=== PATIENT | female | born 1985 | race Caucasian/White ===

== ENCOUNTER 2023-01-15 13:53 | Outpatient (OUT) | payer MEDICAID, SELFPAY ==
[2023-01-15 14:22] LABS: Basophils Percent Auto 0.8 % (0.2-2.0); Eosinophils Absolute Auto 0.1 10^3/uL (0.0-0.7); Eosinophils Percent Auto 1.9 % (0.9-7.0); Hematocrit 35.8 % (36.0-48.0); Hemoglobin 12.1 g/dL (12.0-16.0); Immature Granulocytes Abs Auto 0.01 10^3/uL (0.00-0.03); Immature Granulocytes Pct Auto 0.2 % (0.0-0.5); Lymphocytes Absolute Auto 2.4 10^3/uL (1.2-3.8); Lymphocytes Percent Auto 45.3 % (20.5-60.0); Mean Corpuscular HGB Conc 33.8 g/dL (29.9-35.2); Mean Corpuscular Hemoglobin 29.7 pg (26.7-34.0); Mean Corpuscular Volume 87.7 fL (81.0-99.0); Mean Platelet Volume 7.8 fL (9.5-13.5); Monocytes Absolute Auto 0.4 10^3/uL (0.3-0.8); Monocytes Percent Auto 6.8 % (1.7-12.0); Neutrophils Absolute Auto 2.4 10^3/uL (1.4-6.5); Platelet Count 275 10^3/uL (150-450); Red Blood Count 4.08 10^6/uL (4.20-5.40); Red Cell Distribution Width 12.1 % (11.0-15.0); White Blood Count 5.3 10^3/uL (4.0-11.0)
[2023-01-15 15:36] LABS: Alanine Aminotransferase 14 U/L (14-59); Albumin Globulin Ratio 1.3; Albumin Level 4.3 g/dL (3.4-5.0); Alkaline Phosphatase 75 U/L (46-116); Anion Gap 14.1; Aspartate Amino Transferase 13 U/L (15-37); BUN Creatinine Ratio 19.8; Bilirubin Total 0.4 mg/dL (0.2-1.0); Calcium 9.2 mg/dL (8.5-10.1); Carbon Dioxide 27.4 mmol/L (21.0-32.0); Chloride 100 mmol/L (98-107); Estimated GFR (African America >60 (>=60); Estimated GFR (Non-African Ame >60 (>=60); Globulin 3.4 g/dL; Glucose 78 mg/dL (74-106); Potassium 3.5 mmol/L (3.5-5.1); Sodium 138 mmol/L (136-145); Total Protein 7.7 g/dL (6.4-8.2)
[2023-01-15 15:46] LABS: Cholesterol 200 mg/dL (<=200); HDL Cholesterol 50 mg/dL (40-60); Thyroid Stimulating Hormone 2.371 uIU/mL (0.358-3.740); Triglycerides 132 mg/dL (<=150); VLDL CHOLESTEROL 26.4 mg/dL
== END 2023-01-15 13:54 ==
LOC: LAB 13:53
DX: F41.1 Generalized anxiety disorder (principal); F32.9 Major depressive disorder, single episode, unspecified
CPT/HCPCS: 36415; 80053; 80061; 82306; 84443; 85025

== ENCOUNTER 2023-01-15 14:01 | Outpatient (REF) | payer MEDICAID, SELFPAY ==
[2023-01-16 04:07] LABS: Estradiol 49.8 pg/mL (.); FSH 8.1 mIU/mL (.); Luteinizing Hormone(LH) 3.4 mIU/mL (.)
[2023-01-16 10:13] LABS: Insulin 6.2 uIU/mL (2.6-24.9)
[2023-01-18 15:10] LABS: Free Testosterone(Direct) 0.2 pg/mL (0.0-4.2); Testosterone 3 ng/dL (8-60)
== END 2023-01-15 14:02 | disposition home or self-care (01) ==
LOC: LAB 14:01
PROVIDERS: PCP Nurse Practitioner Family; Visit Provider Nurse Practitioner Family
DX: F41.1 Generalized anxiety disorder (principal); F32.9 Major depressive disorder, single episode, unspecified; R23.2 Flushing
CPT/HCPCS: 36415; 80053; 80061; 82306; 82627; 82670; 83001; 83002; 83525; 84402; 84403; 84443; 85025

== ENCOUNTER 2024-03-17 13:15 | Outpatient (OUT) | payer MEDICAID, SELFPAY ==
[2024-03-17 14:22] LABS: Alanine Aminotransferase 28 U/L (14-59); Albumin Globulin Ratio 1.3; Albumin Level 4.1 g/dL (3.4-5.0); Alkaline Phosphatase 79 U/L (46-116); Anion Gap 12.2; Aspartate Amino Transferase 19 U/L (15-37); BUN Creatinine Ratio 20.7; Bilirubin Total 0.6 mg/dL (0.2-1.0); Calcium 8.9 mg/dL (8.5-10.1); Chloride 98 mmol/L (98-107); Estimated GFR (African America >60 (>=60); Estimated GFR (Non-African Ame >60 (>=60); Globulin 3.1 g/dL; Glucose 71 mg/dL (74-106); Potassium 4.2 mmol/L (3.5-5.1); Sodium 132 mmol/L (136-145); Total Protein 7.2 g/dL (6.4-8.2)
[2024-03-18 06:09] LABS: HBsAg Screen Negative (Negative); HIV Ab/p24 Ag Screen Non Reactive (Non Reactive); Hep B Core Ab, Tot Negative (Negative)
[2024-03-18 12:10] LABS: Rapid Plasma Reagin, Quant Non Reactive titer (NonRea<1:1)
[2024-03-19 08:12] LABS: QuantiFERON-TB Gold Plus Positive (Negative)
[2024-03-20 13:08] LABS: HCV Ab Reactive (Non Reactive)
== END 2024-03-17 13:16 | disposition home or self-care (01) ==
LOC: LAB 13:18
PROVIDERS: PCP Nurse Practitioner Family
DX: Z11.3 Encounter for screening for infections with a predominantly sexual mode of transmission (principal); Z13.0 Encounter for screening for diseases of the blood and blood-forming organs and certain disorders involving the immune mechanism; Z11.4 Encounter for screening for human immunodeficiency virus [HIV]; Z11.59 Encounter for screening for other viral diseases; Z11.8 Encounter for screening for other infectious and parasitic diseases
CPT/HCPCS: 36415; 80053; 86480; 86592; 86704; 86803; 87340; 87389

== ENCOUNTER 2025-03-18 11:21 | Outpatient (OUT) | payer OTHER, SELFPAY ==
--- OUTSIDE RECORDS SUMMARY | 2025-03-18 11:31 | XMS_ITS | CCD ---
Author Organization [facility] Care Team Providers Care Ophthalmic Surgeon Name Role Phone DENIS DIEGO Unavailable Unavailable AKI HONG Unavailable Unavailable AKI HONG Unavailable Unavailable GREGORY SANDERSON Unavailable Unavailable Aki Lantigua Primary Care Provider STEVE, DR GARCIA Admitting Unavailable STEVE, DR GARCIA Attending Unavailable GIRVIN, DR PRABHAKAR Primary Care Unavailable STEVE, DR GARCIA Admitting Unavailable STEVE, DR GARCIA Attending Unavailable MISC, DR PADGETT Primary Care Unavailable STEVE, DR GARCIA Consulting Unavailable MISC, DR PADGETT Admitting Unavailable MISC, DR PADGETT Attending Unavailable MISC, DR PADGETT Primary Care Unavailable MISC, DR PADGETT Consulting Unavailable STEVE, DR GARCIA Admitting Unavailable STEVE, DR GARCIA Attending Unavailable MISC, DR PADGETT Primary Care Unavailable STEVE, DR GARCIA Consulting Unavailable KIRACLARIN R Admitting Unavailable KIRAPOLINA Whatley Attending Unavailable AMOS, DR PRABHAKAR Primary Care Unavailable POLINA MALONE Consulting Unavailable WILLIAM BENDER Attending Unavailable WILLIAM BENDER Primary Care Unavailable WILLIAM BENDER Admitting Unavailable Allergies Allergy Classification Reported Allergen(s) Allergy Type Date of Onset Reaction(s) Facility Sulfonamides (antibiotic) (1 source) Sulfonamides (Antibiotic) Drug Allergy 01-06-2014 [facility] (2 sources) Sulfonamides (Antibiotic) Drug allergy (disorder) 06-29-2013 [facility] Repository Medications Completed/Discontinued Medications Medication Drug Class(es) Dates Sig (Normalized) Sig (Original) busPIRone hydrochloride 5 mg oral tablet (1 source) take 1 tablet by mouth three times daily busPIRone 5 mg tablet Take 5 mg by mouth three times daily. 0 Active Comment on above: Take 5 mg by mouth t hree times daily. calcium carbonate-Vit D3-minerals (CALTRATE-600 PLUS VITAMIN D3) 600 mg calcium- 400 unit tab (1 source) take 1 tablet by mouth once daily calcium carbonate-Vit D3-minerals (CALTRATE-600 PLUS VITAMIN D3) 600 mg calcium- 400 unit tab Take 1 tablet by mouth once daily. 0 Active Comment on above: Take 1 tablet by jose luis th once daily. diphenhydrAMINE hydrochloride 25 mg oral tablet (1 source) Histamine-1 Receptor Antagonist take 1 tablet by mouth every six hours as needed diphenhydrAMINE (BENADRYL ALLERGY) 25 mg tablet Take 25 mg by mouth every 6 hours as needed. 0 Active Comment on above: Take 25 mg by mouth every 6 hours as needed. Fiber (1 source) FIBER 6 ORAL Vinay e by mouth. 0 Active Comment on above: Take by mouth. methamphetamine hydrochloride 5 mg oral tablet (1 source) Amphetamine Anorectic, Central Nervous System Stimulant Methamphetamine HCl 5 mg tab Take by mouth. 0 Active Comment on above: Take by mouth. VIT#42/FA CMB#6 (PRENA1 CHEW ORAL) (1 source) VIT#42/ FA CMB#6 (PRENA1 CHEW ORAL) Take by mouth. 0 Active Comment on above: Take by mouth. venlafaxine 75 mg oral tablet (1 source) Serotonin and Norepinephrine Reuptake Inhibitor take 1 tablet by mouth once venlafaxine 75 mg tablet Take 75 mg by mouth one time only. 0 Active Comment on above: Take 75 mg by mouth one time only. Problems Active Problems Problem Classification Problem Date Documented Date Episodic/Chronic Anxiety disorders (1 source) Generalized anxiety disorder; Translations: [GENERALIZED ANXIETY DISORDER] Onset: 05-26-2022 Chronic Conduction disorders (4 sources) Long QT syndrome; Translations: [LONG QT SYNDROME] Onset: 07-03-2022 Chronic Immunizations and screening for infectious disease (6 sources) Encounter for screening for infections with a predominantly sexual mode of transmission; Translations: [Encounter for screening for human immunodeficiency virus [HIV]] Onset: 05-25-2022 Episodic Other screening for suspected conditions (not mental disorders or infectious disease) (1 source) Encounter for screening for diseases of the blood and blood-forming organs and certain disorders involving the immune mechanism; Translations: [ENC SCR DZ BLD AND BFO D/O IMMUN MECH] Onset: 05-26-2022 Episodic Skin and subcutaneous tissue infections (1 source) Cutaneous abscess, unspecified; Translations: [Cutaneous abscess, unspecified] Onset: 05-17-2018 Episodic Unclassified (3 sources) CONTACT W/AND (SUSP) EXPOS COVID-19; Translations: [CONTACT W/AND (SUSP) EXPOS COVID-19] Onset: 11-11-2021 Past or Other Problems Problem Classification Problem Date Documented Da te Episodic/Chronic Other complications of (1 source) growth restriction; Translations: [Maternal care for other known or suspected poor growth, unspecified trimester, not applicable or unspecified] Onset: 06-02-2014 06-02-2014 Episodic Substance-related disorders (2 sources) Substance abuse; Translations: [Drug use complicating , unspecified trimester] Onset: 01-06-2014 01-06-2014 Episodic Unclassified (1 source) CONTACT W/AND (SUSP) EXPOS COVID-19; Translations: [CONTACT W/AND (SUSP) EXPOS COVID-19] Onset: 11-08-2021 Results Test Name Value Interpretation Reference Range Facility PAP [id number] Age Gdlnon 2023 IGP Aptima HPV ACOG Note Invalid Interpretation Code [facility] Comment on above: Result Comment: TEST S RESULT FLAG UNITS REF RANGE LAB Clinician Provided Cytology Information Source.............Cervix No. of containers..01 ThinPrep Vial Age Algo ACOG Suyapa... 30-65 01 FLAG LEGEND: L-Low Normal,H-High Normal,LL-Alert Low,HH-Alert High <-Panic Low,>-Panic High,A-Abnormal,AA-Critical Abnormal Performed at: 01 =G [facility] [address] [place] [address] Teri Blanchard MD, Performed at: =G [facility] [address] [place], [place] [id number] MD Lo Williamson Performed By: #### 1 [id number], [id number] #### [facility] [address] [place] [address] PAP [id number] 02-08-2023 Cytology report Cyto stain Doc (Cvx/Vag) Note Invalid Interpretation Code [facility] Comment on above: Result Comment: TEST S RESULT FLAG UNITS REF RANGE LAB DIAGNOSIS: 02 NEGATIVE FOR INTRAEPITHELIAL LESION OR MALIGNANCY. Specimen adequacy: 02 Satisfactory for evaluation. Endocervical and/or squamous metaplastic cells (endocervical component) are present. Performed by: Stone Wolff, Metal Precision Machine Assembler (ASCP) . 02 Note: Note 02 The Pap smear is a screening test designed to aid in the detection of premalignant and malignant conditions of the uterine cervix. It is not a diagnostic procedure and should not be used as the sole means of detecting cervical cancer. Both false-positive and false-negative reports do occur. Test Methodology: Note 02 The [employer](R) Animal Nursery Worker was unable to read this specimen. Therefore a manual review was performed. FLAG LEGEND: L-Low Normal,H-High Normal,LL-Alert Low,HH-Alert High <-Panic Low,>-Panic High,A-Abnormal,AA-Critical Abnormal Performed at: 02 [facility] [address] [place] [address] Teri Blanchard MD, Performed By: #### 1 [id number], [id number] #### [facility] [address] [place] [address] HPV 16+18+31+33+35+39+4 5+51+52+56+58+59+66 +68 DNA Probe+sig amp Ql (Cvx) Negative Invalid Interpretation Code Negative [facility] Comment on above: Result Comment: This nucleic acid amplification test detects fourteen high-risk HPV types (16,18,31,33,35,39,45,51,52,56,58,59,66,68) without differentiation. Performed By: #### 1 [id number], [id number] #### [facility] [address] [place] [address] PAP [id number] Age Gdlnon 2023 Collection Technique BRUSH-SPATULA Normal [facility] Comment on above: Performed By: #### 1 [id number], [id number] #### [facility] [address] [place] [address] Gynecological Body Site CERVIX Normal [facility] Comment on above: Performed By: #### 1 [id number], [id number] #### [facility] [address] [place] [address] Physician Orderon 02-06-2023 Physician Order [id number] Normal [facility] HEPATITIS PANEL, ACUTEon HBsAg Screen Negative Normal Negative [facility] Comment on above: Performed By: #### H EPACUT #### [facility] [address] [address] [address] Jayla Erazo HCV AB >11.0 Critically high 0.0-0.9 [facility] Comment on above: Result Comment: . Performed By: #### H EPACUT #### [facility] [address] [address] [address] Jayla Erazo HCV log10 Normal [facility] Comment on above: Performed By: #### H EPACUT #### [facility] [address] [address] [address] Jayla Erazo Hep A Ab, IgM Negative Normal Negative [facility] Comment on above: Performed By: #### H EPACUT #### [facility] [address] [address] [address] Jayla Erazo Hep B Core Ab, IgM Negative Normal Negative [facility] Comment on above: Performed By: #### H EPACUT #### [facility] [address] [address] [address] Jayla Erazo Hep C Quantitation Not detected Normal [facility] Comment on above: Performed By: #### H EPACUT #### [facility] [address] [address] [address] Jayla Erazo Interpretation Comment Normal [facility] Comment on above: Result Comment: Posi tive HCV antibody screen without the presence of HCV RNA is consistent with a resolved past infection or a false positive HCV antibody. Consider repeat testing after one month. Performed By: #### H EPACUT #### [facility] [address] [address] [address] Jayla Erazo Test Information: Comment Normal [facility] Comment on above: Result Comment: The quantitative range of this assay is 15 IU/mL to 100 million IU/mL. Performed By: #### H EPACUT #### [facility] [address] [place] [address] Dr. Jayla Erazo HIV 1 AND 2 WITH REFLEXon HIV Screen 4th Generation wRfx Non-Reactive Normal Non Reactive [facility] Comment on above: Result Comment: HIV Negative HIV-1/HIV-2 antibodies and HIV-1 p24 antigen were NOT detected. There is no laboratory evidence of HIV infection. Performed By: #### H IV12 #### [facility] [address] [place] [address] Dr. Jayla Erzao RPR QUANTon 05-27-2022 Rapid Plasma Reagin, Quant Non-Reactive Normal NonRea<1:1 [facility] Comment on above: Result Comment: Plea se Note: This test does not meet current guidelines for screening and diagnosis of syphilis. This test is intended for following treatment response in patients being treated for syphilis infection. To screen for syphilis infection, a reflex cascade that includes both RPR and a treponema-specific assay should be utilized, such as Treponema pallidum (Syphilis) Screening [place] (105236) or Rapid Plasma Reagin (RPR) Test With Reflex to Quantitative RPR and Confirmatory Treponema pallidum Antibodies (293067). Performed By: #### R PRQ #### [facility] [address] [place] [address] Dr. Jayla Erazo CBC AUTO DIFFon 05-25-2022 BASO # 0.1 103/ul Normal 0.0-0.1 [facility] Comment on above: Performed By: #### C BC #### [facility] [address] [place] [address] Dr. Jayla Erazo Basophils/100 WBC (Bld) 0.9 % Normal 0.2-2.0 [facility] Comment on above: Performed By: #### C BC #### [facility] [address] [place] [address] Dr. Jayla Erazo EO # 0.3 103/ul Normal 0.0-0.7 [facility] Comment on above: Performed By: #### C BC #### [facility] [address] [place] [address] Dr. Jayla Erazo Eosinophils/100 WBC (Bld) 5.1 % Normal 0.9-7.0 [facility] Comment on above: Performed By: #### C BC #### [facility] [address] [place] [address] Dr. Jayla Erazo Erythrocyte distribution width (RBC) [Ratio] 12.4 % Normal 11.0-15.0 [facility] Comment on above: Performed By: #### C BC #### [facility] [address] [place] [address] Dr. Jayla Erazo Hematocrit (Bld) [Volume fraction] 38.8 % Normal 36.0-48.0 [facility] Comment on above: Performed By: #### C BC #### [facility] [address] [place] [address] Dr. Jayla Erazo Hemoglobin (Bld) [Mass/Vol] 13.0 g/dL Normal 12.0-16.0 [facility] Comment on above: Performed By: #### C BC #### [facility] [address] [place] [address] Dr. Jayla Erazo IG # 0.02 10e3/ul Normal 0.00-0.03 [facility] Comment on above: Performed By: #### C BC #### [facility] [address] [place] [address] Dr. Jayla Erazo IG % 0.3 % Normal 0.0-0.5 [facility] Comment on above: Performed By: #### C BC #### [facility] [address] [place] [address] Dr. Jayla Erazo LYMPH # 2.2 103/ul Normal 1.2-3.8 [facility] Comment on above: Performed By: #### C BC #### [facility] [address] [place] [address] Dr. Jayla Erazo Lymphocytes/100 WBC (Bld) 32.8 % Normal 20.5-60.0 [facility] Comment on above: Performed By: #### C BC #### [facility] [address] [place] [address] Dr. Jayla Erazo MANUAL DIFF REQ NO Normal [facility] Comment on above: Performed By: #### C BC #### [facility] [address] [place] [address] Dr. Jayla Erazo MCH (RBC) [Entitic mass] 29.2 pg Normal 26.7-34.0 [facility] Comment on above: Performed By: #### C BC #### [facility] [address] [address] [address] Jayla Erazo MCHC (RBC) [Mass/Vol] 33.5 g/dL Normal 29.9-35.2 [facility] Comment on above: Performed By: #### C BC #### [facility] [address] [address] [address] Jayla Erazo MCV (RBC) [Entitic vol] 87.2 fL Normal 81.0-99.0 [facility] Comment on above: Performed By: #### C BC #### [facility] [address] [address] [address] Jayla Erazo MONO # 0.4 103/ul Normal 0.3-0.8 [facility] Comment on above: Performed By: #### C BC #### [facility] [address] [place] [address] Dr. Jayla Erazo Monocytes/100 WBC (Bld) 6.2 % Normal 1.7-12.0 [facility] Comment on above: Performed By: #### C BC #### [facility] [address] [place] [address] Dr. Jayla Erazo NEUT # 3.6 103/ul Normal 1.4-6.5 [facility] Comment on above: Performed By: #### C BC #### [facility] [address] [address] [address] Jayla Erazo Neutrophils/100 WBC (Bld) 54.7 % Normal 43.0-75.0 [facility] Comment on above: Performed By: #### C BC #### [facility] [address] [address] [address] Jayla Erazo Platelet mean volume (Bld) [Entitic vol] 7.9 fL Critically low 9.5-13.5 [facility] Comment on above: Performed By: #### C BC #### [facility] [address] [address] [address] Jayla Erazo PLT 251 103/ul Normal 150-450 [facility] Comment on above: Performed By: #### C BC #### [facility] [address] [address] [address] Jayla Erazo RBC 4.45 106/ul Normal 4.20-5.40 [facility] Comment on above: Performed By: #### C BC #### [facility] [address] [address] [address] Jayla Erazo WBC 6.6 103/ul Normal 4.0-11.0 [facility] Comment on above: Performed By: #### C BC #### [facility] [address] [address] [address] Jayla Erazo PROF 14(COMP METB)on 022 Albumin [Mass/Vol] 4.5 g/dL Normal 3.4-5.0 [facility] Comment on above: Performed By: #### C MP, TSH #### [facility] [address] [place] [address] Dr. Jayla Erazo Albumin/Globulin [Mass ratio] 1.2 {ratio} Normal [facility] Comment on above: Performed By: #### C MP, TSH #### [facility] [address] [place] [address] Dr. Jayla Erazo ALP [Catalytic activity/Vol] 87 U/L Normal 46-116 [facility] Comment on above: Performed By: #### C MP, TSH #### [facility] [address] [address] [address] Jayla Erazo ALT [Catalytic activity/Vol] 21 U/L Normal 14-59 [facility] Comment on above: Performed By: #### C MP, TSH #### [facility] [address] [place] [address] Dr. Jayla Erazo Anion gap [Moles/Vol] 9.4 mmol/L Normal [facility] Comment on above: Performed By: #### C MP, TSH #### [facility] [address] [address] [address] Jayla Erazo AST [Catalytic activity/Vol] 14 U/L Critically low 15-37 [facility] Comment on above: Performed By: #### C MP, TSH #### [facility] [address] [address] [address] Jayla Erazo Bilirubin [Mass/Vol] 0.5 mg/dL Normal 0.2-1.0 [facility] Comment on above: Performed By: #### C MP, TSH #### [facility] [address] [place] [address] Dr. Jayla Erazo Calcium [Mass/Vol] 9.5 mg/dL Normal 8.5-10.1 [facility] Comment on above: Performed By: #### C MP, TSH #### [facility] [address] [place] [address] Dr. Jayla Erazo Chloride [Moles/Vol] 101 mmol/L Normal 98-107 [facility] Comment on above: Performed By: #### C MP, TSH #### [facility] [address] [place] [address] Dr. Jayla Erazo CO2 [Moles/Vol] 34.2 mmol/L Critically high 21.0-32.0 [facility] Comment on above: Performed By: #### C MP, TSH #### [facility] [address] [place] [address] Dr. Jayla Erazo Creatinine [Mass/Vol] 0.90 mg/dL Normal 0.55-1.02 [facility] Comment on above: Performed By: #### C MP, TSH #### [facility] [address] [place] [address] Dr. Jayla Erazo EGFR-AF RUSSIAN >60 Normal >=60 [facility] Comment on above: Performed By: #### C MP, TSH #### [facility] [address] [place] [address] Dr. Jayla Erazo EGFR-NON AF RUSSIAN >60 Normal >=60 [facility] Comment on above: Performed By: #### C MP, TSH #### [facility] [address] [place] [address] Dr. Jayla Erazo Globulin (S) [Mass/Vol] 3.8 g/dL Normal [facility] Comment on above: Performed By: #### C MP, TSH #### [facility] [address] [address] [address] Jayla Erazo Glucose [Mass/Vol] 80 mg/dL Normal 74-106 [facility] Comment on above: Performed By: #### C MP, TSH #### [facility] [address] [address] [address] Jayla Erazo Potassium [Moles/Vol] 4.6 mmol/L Normal 3.5-5.1 [facility] Comment on above: Performed By: #### C MP, TSH #### [facility] [address] [address] [address] Jayla Erazo Protein [Mass/Vol] 8.3 g/dL Critically high 6.4-8.2 [facility] Comment on above: Performed By: #### C MP, TSH #### [facility] [address] [place] [address] Dr. Jayla Erazo Sodium [Moles/Vol] 140 mmol/L Normal 136-145 [facility] Comment on above: Performed By: #### C MP, TSH #### [facility] [address] [place] [address] Dr. Jayla Erazo Urea nitrogen [Mass/Vol] 14.0 mg/dL Normal 7.0-18.0 [facility] Comment on above: Performed By: #### C MP, TSH #### [facility] [address] [place] [address] Dr. Jayla Erazo Urea nitrogen/Creatinine [Mass ratio] 15.6 mg/mg Normal [facility] Comment on above: Performed By: #### C MP, TSH #### [facility] [address] [place] [address] Dr. Jayla Erazo TSHon 05-25-2022 TSH 1.602 uIU/mL Normal 0.358-3.740 [facility] Comment on above: Performed By: #### C MP, TSH #### [facility] [address] [place] [address] Dr. Jayla Erazo VITAMIN D 25 OHon 05-25-2022 VIT D 25-OH 17.1 ng/mL Normal [facility] Comment on above: Performed By: #### V ITAD #### [facility] [address] [address] [address] Jayla Erazo VIT D RANGES SEE BELOW Normal [facility] Comment on above: Result Comment: <20 ng/mL Vit D deficient 20 - <30 ng/mL Vit D insufficient 30 - 100 ng/mL Vit D sufficient >100 ng/mL Potential Toxicity Performed By: #### V ITAD #### [facility] [address] [address] [address] Jayla Eraz[facility] SARS-CoV-2 (COVID-19) RNA SHIRAZ+probe Ql (Unsp spec) Not detected Normal NOT DETECTED [facility] Comment on above: Result Comment: This test is not yet approved or cleared by the [place] FDA. When there are no FDA-approved or cleared tests available, and other criteria are met, FDA can make tests available under an emergency access mechanism called an Emergency Use Authorization (EUA). The EUA for this test is supported by the [employer] of Health and Human Service's (HHS's) declaration that circumstances exist to justify the emergency use of in vitro diagnostics for the detection and/or diagnosis of the virus that causes COVID-19. This EUA will remain in effect (meaning this test can be used) for the duration of the COVID-19 declaration justifying emergency of IVDs, unless it is terminated or revoked by FDA (after which the test may no longer be used). When diagnostic testing is negative, the possibility of a false negative should be considered in the context of a patient's recent exposures and the presence of clinical signs and symptoms consistent with SARS-CoV-2. Performed By: #### C VDTBH #### [facility] [address] [address] [address] Jayla Erazo Consulton 05-17-2018 HIM IP Note OR Assessment Coordinator Normal [facility] Discharge Summaryon 05-17-20 18 HIM IP Note OR Assessment Coordinator Normal [facility] ED Noteon 05-17-2018 HIM IP Note OR Assessment Coordinator Normal [facility] HIM IP Note OR Assessment Coordinator Normal [facility] HIM IP Note OR Assessment Coordinator Normal [facility] HIM IP Note OR Assessment Coordinator Normal [facility] HIM IP Note OR Assessment Coordinator Normal [facility] ED Provider Noteon 8 HIM IP Note OR Assessment Coordinator Normal [facility] History and Physicalon 05-17 HIM IP Note OR Assessment Coordinator Normal [facility] Plan of Careon 05-17-2018 HIM IP Note OR Assessment Coordinator Normal [facility] HIM IP Note OR Assessment Coordinator Normal [facility] Procedureon 05-17-2018 HIM IP Note OR Assessment Coordinator Normal [facility] Progress Noteon 05-17-2018 HIM IP Note OR Assessment Coordinator [facility] Encounters Encounter Date Encounter Type Care Provider Facility Start: 02-05-2023 End: 02-06-2023 ambulatory WILLIAM BENDER Facility:[facility] Start: 07-03-2022 End: 07-04-[address] RADHA WILSON Facility:[facility] Start: 05-25-2022 End: 05-26-[address] DOCTOR YI Facility:[facility] Start: 04-20-[address] RADHA WILSON Faci lity:[facility] Start: 11-08-2021 End: 11-08-2021 ambulatory POLINA MALONE Facility:[facility] Start: 05-17-2018 End: 05-17-2018 Patient encounter DENIS DIEGO [facility] Start: 02-10-2014 End: 02-10-2014 Telephone encounter Tre Nichols MD Work Phone: OB/Gynecology Procedures Date Procedure Procedure Detail Performing Clinician Start: 05-17-2018 DISCHARGE PATIENT BUDDY NT JOHNATHON Start: 05-17-2018 IP CONSULT TO SOCIAL WORK VINCGAGANDEEP JOHNATHON Start: 05-17-2018 DIET GENERAL VINCGAGANDEEP TO [place] Start: 05-17-2018 PATIENT STATUS (FROM ED OR OR/PROCEDURAL) VINCENT JOHNATHON Start: 05-17-2018 IP CONSULT TO TRAUMA SURGERY DONGAGANDEEP JOHNATHON Start: 05-17-2018 IP CONSULT TO OTOLARYNGOLOGY DENIS DIEGO Plan of Treatment Date Care Activity Detail Author Start: 03-30-2021 Influenza vaccination INFLUENZA (Sea son Ended) [facility] Start: 2014 HPV TESTING HPV TESTING [facility] Start: 2005 PAP TESTING PAP TESTING [facility] Start: 2003 Urine microalbumin profile DTAP,TDAP ,TD (1 - Tdap) [facility] Start: 2002 HEPATITIS C SCREENING HEPATITIS C SC REENING [facility] Start: 2002 HIV SCREENING HIV SCREENING [facility] Start: 1996 Adult depression scr eening assessment DEPRESSION SCREENING [facility] Payers Date Payer Category Payer Medicare [id number] 2013 Medicaid MEDICAID [facility] MEDICAID [id number] 2013-Present Medicaid [id number] 2013 Medicare MEDICARE MEDICAR E B [id number] 2013-Present [place] Medicare [id number] 1984 Unknown [id number] 1984 Unknown [id number] 1984 Unknown [id number] 1984 Unknown [id number] 1984 Unknown [id number] 1984 Unknown [id number] 1984 Unknown [id number] 1959 Medicaid [id number] Social History Date Type Detail Facility Start: 01-06-2014 Tobacco smoking stat us NHIS Current every day smoker [facility] Start: 01-06-2014 Tobacco use and exposure Never used [facility] Start: 01-06-2014 Alcohol intake Current drinke r of alcohol (finding) [facility] Start: 10-01-2013 [facility] Start: 1984 Sex Assigned At Not on file [facility] Note 02-10-2014 Telephone Encounter - Lucretia Osman RN - 02/10/2014 1:41 PM EDT Note Date & Type Note Facility 02-10-2014 Miscellaneous Notes Patient calling in for quad screen results today. Confirmed patient identification. Patient was informed of a negative quad screen result. Her risk of Spina Bifida is 1:1800. Her AFP in the serum sample is within normal limits. Her age related Downs Syndrome risk is 1:747, and her risk of Downs Syndrome using her age and biochemical markers is 1:1900. The patient's calculated risk of Trisomy 18 is 1:10,000. The patient understands her results and has a follow up ultrasound scheduled for 03/[address] Nichols. She has no further questions documented in this encounter [facility] Summary Purpose Family History No Family History Records FoundNo Family History Records FoundNo Family History Records Found Advance Directives No Advanced Directives Records FoundNo Advanced Directives Records FoundNo Advanced Directives Records Found Additional Source Comments INFORMATION SOURCE (unrecogn ized section and content) DATE CREATED AUTHOR 06/17/2018 [facility] DATE CREATED AUTHOR AUTHOR'S ORGANIZ ATION 07/08/2022 [facility] DATE CREATED AUTHOR AUTHOR'S ORGANIZ ATION 02/09/2023 [facility] Source Comments (unrecognize d section and content) In the event this informatio n is protected by the Federal Confidentiality of Alcohol and Drug Abuse Patient Records regulations: The Federal rules restrict any use of the information to criminally investigate or prosecute any alcohol or drug abuse patient.[facility] FOR RECORDS PERTAINING TO PATIENTS WHO ARE OR HAVE BEEN ENROLLED IN A CHEMICAL DEPENDENCY/SUBSTANCEABUSE PROGRAM, SOME INFORMATION MAY BE OMITTED. This clinical summary was aggregated from multiple sources. Caution should be exercised in using it in the provision of clinical care. This summary normalizes information from multiple sources, and as a consequence, information in this document may materially change the coding, format and clinical context of patient data. In addition, data may be omitted in some cases. CLINICAL DECISIONS SHOULD BE BASED ON THE PRIMARY CLINICAL RECORDS. [facility] [employer] [facility] provides no warranty or guarantee of the accuracy or completeness of information in this document.
[2025-03-18 14:05] LABS: Hematocrit 44.9 % (36.0-48.0); Hemoglobin 15.8 g/dL (12.0-16.0); Immature Granulocytes Abs Auto 0.02 10^3/uL (0.00-0.03); Immature Granulocytes Pct Auto 0.2 % (0.0-0.5); Lymphocytes Absolute Auto 1.8 10^3/uL (1.2-3.8); Mean Corpuscular HGB Conc 35.2 g/dL (29.9-35.2); Mean Corpuscular Hemoglobin 30.9 pg (26.7-34.0); Mean Corpuscular Volume 87.9 fL (81.0-99.0); Platelet Count 226 10^3/uL (150-450); Red Blood Count 5.11 10^6/uL (4.20-5.40); White Blood Count 8.7 10^3/uL (4.0-11.0)
[2025-03-18 15:36] LABS: Cholesterol 276 mg/dL (<=200); HDL Cholesterol 43 mg/dL (40-60); Thyroid Stimulating Hormone 1.394 uIU/mL (0.358-3.740); Triglycerides 215 mg/dL (<=150); VLDL CHOLESTEROL 43.0 mg/dL
[2025-03-20 12:08] LABS: Calcitriol(1,25 di-OH Vit D) 59.9 pg/mL (24.8-81.5)
== END 2025-03-18 11:22 | disposition home or self-care (01) ==
LOC: LAB 11:25
DX: F41.1 Generalized anxiety disorder (principal)
CPT/HCPCS: 36415; 80061; 82652; 84443; 85025

== ENCOUNTER 2025-03-18 11:28 | Outpatient (OUT) | payer OTHER, SELFPAY ==
--- OUTSIDE RECORDS SUMMARY | 2025-03-18 11:32 | XMS_ITS | Clinical Summary ---
Author Organization [facility] Address [address] [place] [address] Care Team Providers Care Caustic Room Attendant Name Role Phone Unavailable Primary Care Provider Unavailabl e Social History Tobacco Use Types Packs/Day Years Used Date Smoking Tobacco: Never Assessed Comments Unknown Sex and Gender Information Value Date Recorded Sex Assigned at Not on file Legal Sex Female 7:10 PM EDT Gender Identity Not on file Sexual Orientation Not on file Last Filed Vital Signs Vital Sign Reading Time Taken Comments Blood Pressure 106/68 08/21/2018 12:00 PM EST Pulse - - Temperature - - Respiratory Rate - - Oxygen Saturation - - Inhaled Oxygen Concentration - - Weight 50.8 kg (112 lb) 08/21/2018 12:00 PM EST Height 167.6 cm (5' 6 ) 08/21/2018 12:00 PM EST Body Mass Index 18.08 08/21/2018 12:00 PM EST Plan of Treatment Not on file
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
--- OUTSIDE RECORDS SUMMARY | 2025-03-18 11:32 | XMS_ITS | Patient Health Record ---
Author Organization [employer] [facility] Address [address] [place] [address] Care Team Providers Care Concrete Layer Name Role Phone Gladys Nolasco Primary Care Provider Isamar Chen Unavailable Allergies Allergen (clinical drug ingredient) Drug/Non Drug Allergy documented on EMR Reaction Allergy Type Onset Date Status Substance with sulfonamide structure and antibacterial mechanism of action (substance) Sulfa Antibiotics Unknown Drug Allergy Active Reason For Referral No Information Medications Medication SIG (Take, Route, Frequency, Duration) Notes Start Date End Date Status cloNIDine HCl 0.2 MG 1 tablet Orally Onc e a day at bedtime as needed for sleep; Duration: 30 days Active Nurtec 75 MG 1 tablet on the tong ue and allow to dissolve Orally Active Montelukast Sodium 10 MG TAKE 1 TABLET B Y MOUTH EVERY DAY FOR 30 DAYS; Duration: 30 Active ARIPiprazole 20 MG 1 tablet Orally Once a day; Duration: 30 days Active buPROPion HCl ER (XL) 150 MG 1 tablet in the morning Orally Once a day; Duration: 30 days Not-Takin g Rexulti 3 MG TAKE 1 TABLET BY WALDO EVERY DAY Orally Once a day; Duration: 30 days Active Cetirizine HCl 10 MG TAKE 1 TABLET BY MO H EVERY DAY; Duration: 30 Active buPROPion HCl ER (XL) 300 MG 1 tablet in the morning Orally Once a day; Duration: 30 days Active Pataday 0.2 % 1 drop into affected eye Ophthalmic Once a day; Duration: 30 days 01/08/2023 Active Ibuprofen 800 MG 1 tablet with food o r milk as needed Orally Three times a day 07/20/2022 Active Amoxicillin Not-Taki ng Amitriptyline HCl 25 MG 1 tablet at bedt korina Orally Once a day; Duration: 30 day(s) 06/05/2022 Not-Taking Amoxicillin-Pot Clavulanate 875-125 MG 1 tablet Orally every 12 hrs; Duration: 10 day(s) Not-Taking QUEtiapine Fumarate 50 MG TAKE 1 TABLET BY MOUTH EVERY DAY AT BEDTIME FOR 30 DAYS as needed for sleep Once a day as needed for sleep; Duration: 30 days Active lamoTRIgine 200 MG TAKE 1 TABLET BY WALDO TH EVERY DAY FOR 30 DAYS Orally Once a day; Duration: 30 days Not-Taking Propranolol HCl 20 MG 1 tablet on an emp ty stomach Orally daily; Duration: 30 days 01/01/2025 Active Social History Tobacco Use: Social History Observation Description Date Details (start date - stop date) Current Smoker NA - NA Alcohol Screening: Question Answer Notes Did you have a drink contain ing alcohol in the past year? Yes How often did you have a dri nk containing alcohol in the past year? Monthly or less (1 point) How many drinks did you have on a typical day when you were drinking in the past year? 1 or 2 (0 points) How often did you have six o r more drinks on one occasion in the past year? Never (0 points) Points 1 Interpretation Negative Depression Screening (PHQ-9): Question Answer Notes Little interest or pleasure in doing things Sammie ral days Feeling down, depressed, or hopeless More than h romulo the days Trouble falling or staying asleep, or sleeping t oo much Not at all Feeling tired or having little energy Nearly rufino ry day Poor appetite or overeating Several days Feeling bad about yourself-o r that you are a failure or have let yourself or your family down Nearly every day Trouble concentrating on thi ngs, such as reading the newspaper or watching television Several days Moving or speaking so slowly that other people could have noticed. Or the opposite being so fidgety or restless that you have been moving around a lot more than usual Not at all Thoughts that you would be b thierry off , or of hurting yourself in some way Not at all Total Score 11 Intepretation Moderate Depression Tobacco Control (Standard) Question Answer Notes Tobacco use: Current smoker How often do you smoke cigarettes? Every day How many cigarettes a day do you smoke? 21- Problems Problem Type SNOMED Code ICD Code Onset Dates Problem Status W/U Status Risk Notes Problem Bacterial infectious disease (62328622) Other specified bacterial agents as the cause of diseases classified elsewhere (B96.89) Active confirmed Problem Long QT syndrome (3835514) Long QT syndrome (I45.81) Active confirmed Problem Acute sinusitis (28560603) Acute sinusitis, unspecified (J01.90) Active confirmed Problem Seasonal allergy (982064966) Seasonal allergies (J30.2) Active confirmed Problem Depression (372351819) Depression (F32.9) Active confirmed Problem Migraine (11170593) Migraine without status migrainosus, not intractable, unspecified migraine type (G43.909) Active confirmed Problem Episodic mood disorder (03845725069932) Episodic mood disorder (F39) Active confirmed Problem Substance use disorder (8576282696) Substance use disorder (F19.90) Active confirmed Problem Allergic rhinitis (36878128) Allergic rhinitis, unspecified seasonality, unspecified trigger (J30.9) Active confirmed Problem Generalized anxiety disorder (03277166) Generalized anxiety disorder (F41.1) Active confirmed Vital Signs Heart Rate 59 /min 02/16/2025 Temperature 97.4 degrees Fahrenheit 08/27/2024 Blood pressure diastolic 71 mm Hg 02/16/2025 Oximetry 98 % 02/16/2025 Height 66 in 02/16/2025 Blood pressure systolic 114 mm Hg 02/16/2025 Weight 201.6 lbs 02/16/2025 BMI 32.54 kg/m2 02/16/2025 Encounters Encounter Location Date Provider Diagnosis [facility] [address] [place] [address] 08/04/2024 Gladys Nolasco Generalized anxiety disorder F41.1 [facility] [address] [place] [address] 03/09/2025 Isamar Jesus [facility] [address] [place] [address] 03/18/2025 Isamar Jesus [address] [address] 03/09/2025 Isamar Jesus Cracked tooth K03.81 ; Partial loss of teeth, unspecified cause, class I K08.401 ; Encounter for dental examination and cleaning with abnormal findings Z01.21 ; Disturbances in tooth eruption K00.6 ; Necrosis of pulp K04.1 and Dental caries on pit and fissure surface penetrating into dentin K02.[address] [place] [address] 02/16/2025 Gladys Slingwine Generalized anxiety disorder F41.1 and Episodic mood disorder F39 [facility] [address] [place] [address] 08/27/2024 Gladys Slingwine Generalized anxiety disorder F41.1 ; Episodic mood disorder F39 ; Depression F32.9 and Substance use disorder F19.90 [facility] [address] [place] [address] 10/23/2024 Gladys Slingwine Episodic mood disorder F39 and Generalized anxiety disorder F41.1 [facility] [address] [place] [address] 04/04/2024 Gladys Slingwine Generalized anxiety disorder F41.1 and Episodic mood disorder F39 [facility] [address] [place] [address] 04/16/2024 Gladys Slingwine Generalized anxiety disorder F41.1 and Episodic mood disorder F39 [facility] [place] [address] [place] [address] 05/07/2024 Gladys Slingwine Episodic mood disorder F39 and Generalized anxiety disorder F41.1 [facility] [address] [place] [address] 01/01/2025 Gladys Slingwine Generalized anxiety disorder F41.1 ; Depression F32.9 and Episodic mood disorder F39 Assessments Encounter Date Diagnosis (ICD Code) Assessment Notes Treatment Notes Treatment Clinical Notes Section Notes 04/04/2024 Episodic mood disorder (ICD-10 - F39) 04/04/2024 Generalized anxiety disorder (ICD-10 - F41.1) 04/16/2024 Generalized anxiety disorder (ICD-10 - F41.1) 05/07/2024 Episodic mood disorder (ICD-10 - F39) 08/04/2024 Generalized anxiety disorder (ICD-10 - F41.1) 08/27/2024 Generalized anxiety disorder (ICD-10 - F41.1) Recommended treatment is: _ Buspar is a medication used for anxiety. The medication can cause dizziness, sedation, and restless. Please contact the office if you experience these symptoms. The medication typically takes 2-4 weeks to achieve efficacy. Made aware to contact office if symptoms worsen. clonidine: Encouraged to call office or report to the if the patient experiences dizziness or lightheadedness . Please monitor for worsening of symptoms, especially suicidal ideations or morbid thoughts, and call office and or go to the emergency department immediately. Pt does not endorse exhibiting symptoms aligning with thony. . The patient verbalizes understanding with all questions answered thoroughly and is in agreement with treatment plan. . Continue current treatment plan Patient/Guardian will call sooner if symptoms worsen. Patient understands to go to ER if needed if symptoms become severe. Crisis Intervention plan was discussed and agreed upon. Patient/Guardian will call 911 in case of emergency. Emergency contact information was provided to the patient/guardian. 10/23/2024 Episodic mood disorder (ICD-10 - F39) Educated on antidepressant. Made aware of Black Box Warning that it can increase suicidal thoughts, especially in minors. If this happens go to the ER. Make the office aware or go to the ER, if you experience seizures or an increase in activity and irritability. Made aware to not abruptly stop medication. Medication can cause headache and nausea. . Denies suicidal or homicidal ideation or plan. No morbid thoughts. Interpersonal issues discussed. Support provided Insight oriented/ Behavior modifying/ Supportive therapy . Informed consent obtained: YES, we discussed the diagnosis/diagnoses , the treatment options, treatment(s) recommended vs. no treatment. We discussed risks and benefits of treatment options, treatment recommendations vs. no treatment. . . . Pt is to continue current treatment plan Has good tolerability and compliance with medication Call for problems All questions and concerns discussed . 10/23/2024 Generalized anxiety disorder (ICD-10 - F41.1) Recommended treatment is: Patient educated on antipsychotic dosing schedule and side effects. Made aware to not abruptly stop the medication. Made aware to notify the office or go to the ER if experience any abnormal repetitive movements. Also, made aware to notify office of any nausea, vomiting, or dizziness. Made aware to not stop medication abruptly. This is an FDA approved use for this medication. Discussed with patient crisis plan. Provided crisis hotline number. [facility] has good support system. Made aware to contact office if has an increase in suicidal thoughts. If outside of office hours, patient to go to the ER. clonidine: Encouraged to call office or report to the if the patient experiences dizziness or lightheadedness Patient will call the office with any questions or concerns. . Please monitor for worsening of symptoms, especially suicidal ideations or morbid thoughts, and call office and or go to the emergency department immediately. Pt does not endorse exhibiting symptoms aligning with thony. . The patient verbalizes understanding with all questions answered thoroughly and is in agreement with treatment plan. . Continue current treatment plan Patient/Guardian will call sooner if symptoms worsen. Patient understands to go to ER if needed if symptoms become severe. Crisis Intervention plan was discussed and agreed upon. Patient/Guardian will call 911 in case of emergency. Emergency contact information was provided to the patient/guardian. 01/01/2025 Generalized anxiety disorder (ICD-10 - F41.1) clonidine: Encouraged to call office or report to the if the patient experiences dizziness or lightheadedness Patient educated on antipsychotic dosing schedule and side effects. Made aware to not abruptly stop the medication. Made aware to notify the office or go to the ER if experience any abnormal repetitive movements. Also, made aware to notify office of any nausea, vomiting, or dizziness. Made aware to not stop medication abruptly. This is an FDA approved use for this medication. Discussed with patient crisis plan. Provided crisis hotline number. [facility] has good support system. Made aware to contact office if has an increase in suicidal thoughts. If outside of office hours, patient to go to the ER. Patient will call the office with any questions or concerns. 02/16/2025 Generalized anxiety disorder (ICD-10 - F41.1) Patient educated on antipsychotic dosing schedule and side effects. Made aware to not abruptly stop the medication. Made aware to notify the office or go to the ER if experience any abnormal repetitive movements. Also, made aware to notify office of any nausea, vomiting, or dizziness. Made aware to not stop medication abruptly. This is an FDA approved use for this medication. Discussed with patient crisis plan. Provided crisis hotline number. [facility] has good support system. Made aware to contact office if has an increase in suicidal thoughts. If outside of office hours, patient to go to the ER. Patient will call the office with any questions or concerns. Patient educated on antipsychotic dosing schedule and side effects. Made aware to not abruptly stop the medication. Made aware to notify the office or go to the ER if experience any abnormal repetitive movements. Also, made aware to notify office of any nausea, vomiting, or dizziness. Made aware to not stop medication abruptly. This is an FDA approved use for this medication. Discussed with patient crisis plan. Provided crisis hotline number. [facility] has good support system. Made aware to contact office if has an increase in suicidal thoughts. If outside of office hours, patient to go to the ER. Patient will call the office with any questions or concerns. clonidine and propranolol: Encouraged to call office or report to the if the patient experiences dizziness or lightheadedness 03/09/2025 Cracked tooth (ICD-10 - K03.81) 03/09/2025 Partial loss of teeth, unspecified cause, class I (ICD-10 - K08.401) 02/16/2025 Episodic mood disorder (ICD-10 - F39) Educated on antidepressant. Made aware of Black Box Warning that it can increase suicidal thoughts, especially in minors. If this happens go to the ER. Make the office aware or go to the ER, if you experience seizures or an increase in activity and irritability. Made aware to not abruptly stop medication. Medication can cause headache and nausea. . Denies suicidal or homicidal ideation or plan. No morbid thoughts. Interpersonal issues discussed. Support provided Insight oriented/ Behavior modifying/ Supportive therapy . Patient educated on antipsychotic dosing schedule and side effects. Made aware to not abruptly stop the medication. Made aware to notify the office or go to the ER if experience any abnormal repetitive movements. Also, made aware to notify office of any nausea, vomiting, or dizziness. Made aware to not stop medication abruptly. This is an FDA approved use for this medication. Discussed with patient crisis plan. Provided crisis hotline number. [facility] has good support system. Made aware to contact office if has an increase in suicidal thoughts. If outside of office hours, patient to go to the ER. Patient will call the office with any questions or concerns. . Informed consent obtained: YES, we discussed the diagnosis/diagnoses , the treatment options, treatment(s) recommended vs. no treatment. We discussed risks and benefits of treatment options, treatment recommendations vs. no treatment. . . Pt is to continue current treatment plan Has good tolerability and compliance with medication Call for problems All questions and concerns discussed . 01/01/2025 Depression (ICD-10 - F32.9) 08/27/2024 Episodic mood disorder (ICD-10 - F39) Patient educated on antipsychotic dosing schedule and side effects. Made aware to not abruptly stop the medication. Made aware to notify the office or go to the ER if experience any abnormal repetitive movements. Also, made aware to notify office of any nausea, vomiting, or dizziness. Made aware to not stop medication abruptly. This is an FDA approved use for this medication. Discussed with patient crisis plan. Provided crisis hotline number. [facility] has good support system. Made aware to contact office if has an increase in suicidal thoughts. If outside of office hours, patient to go to the ER. Patient will call the office with any questions or concerns. Lamictal: Patient educated on dosing schedule of medication. Made aware to make prescriber aware of any unexplainable rash or flu-like symptoms. If outside of office hours patient should report to the ER. Made aware to contact the office with any questions or concerns. Provided crisis hotline number. Patient states has good support system. Will call office or report to the ER with suicidal ideations. Educated on antidepressant. Made aware of Black Box Warning that it can increase suicidal thoughts, especially in minors. If this happens go to the ER. Make the office aware or go to the ER, if you experience seizures or an increase in activity and irritability. Made aware to not abruptly stop medication. Medication can cause headache and nausea. . Denies suicidal or homicidal ideation or plan. No morbid thoughts. Interpersonal issues discussed. Support provided Insight oriented/ Behavior modifying/ Supportive therapy . 05/07/2024 Generalized anxiety disorder (ICD-10 - F41.1) 04/16/2024 Episodic mood disorder (ICD-10 - F39) 08/27/2024 Depression (ICD-10 - F32.9) 01/01/2025 Episodic mood disorder (ICD-10 - F39) Patient educated on antipsychotic dosing schedule and side effects. Made aware to not abruptly stop the medication. Made aware to notify the office or go to the ER if experience any abnormal repetitive movements. Also, made aware to notify office of any nausea, vomiting, or dizziness. Made aware to not stop medication abruptly. This is an FDA approved use for this medication. Discussed with patient crisis plan. Provided crisis hotline number. [facility] has good support system. Made aware to contact office if has an increase in suicidal thoughts. If outside of office hours, patient to go to the ER. Patient will call the office with any questions or concerns. Educated on antidepressant. Made aware of Black Box Warning that it can increase suicidal thoughts, especially in minors. If this happens go to the ER. Make the office aware or go to the ER, if you experience seizures or an increase in activity and irritability. Made aware to not abruptly stop medication. Medication can cause headache and nausea. . Denies suicidal or homicidal ideation or plan. No morbid thoughts. Interpersonal issues discussed. Support provided Insight oriented/ Behavior modifying/ Supportive therapy . Informed consent obtained: YES, we discussed the diagnosis/diagnoses , the treatment options, treatment(s) recommended vs. no treatment. We discussed risks and benefits of treatment options, treatment recommendations vs. no treatment. . . . Pt is to continue current treatment plan Has good tolerability and compliance with medication Call for problems All questions and concerns discussed . 03/09/2025 Encounter for dental examination and cleaning with abnormal findings (ICD-10 - Z01.21) 03/09/2025 Disturbances in tooth eruption (ICD-10 - K00.6) 08/27/2024 Substance use disorder (ICD-10 - F19.90) 03/09/2025 Necrosis of pulp (ICD-10 - K04.1) 03/09/2025 Dental caries on pit and fissure surface penetrating into dentin (ICD-10 - K02.52) 04/04/2024 Other follow up in 2 weeks Educated on new antidepressant. Made aware of Black Box Warning that it can increase suicidal thoughts, especially in minors. If this happens go to the ER. Make the office aware or go to the ER, if you experience seizures or an increase in activity and irritability. Made aware to not abruptly stop medication. Medication can cause headache and nausea. . Denies suicidal or homicidal ideation or plan. No morbid thoughts. Interpersonal issues discussed. Support provided Insight oriented/ Behavior modifying/ Supportive therapy . Patient educated on new antipsychotic dosing schedule and side effects. Made aware to not abruptly stop the medication. Made aware to notify the office or go to the ER if experience any abnormal repetitive movements. Also, made aware to notify office of any nausea, vomiting, or dizziness. Made aware to not stop medication abruptly. This is an FDA approved use for this medication. Discussed with patient crisis plan. Provided crisis hotline number. [facility] has good support system. Made aware to contact office if has an increase in suicidal thoughts. If outside of office hours, patient to go to the ER. Patient will call the office with any questions or concerns. Lamictal: Patient educated on dosing schedule of medication. Made aware to make prescriber aware of any unexplainable rash or flu-like symptoms. If outside of office hours patient should report to the ER. Made aware to contact the office with any questions or concerns. Provided crisis hotline number. Patient states has good support system. Will call office or report to the ER with suicidal ideations. clonidine: Encouraged to call office or report to the if the patient experiences dizziness or lightheadedness . Informed consent obtained: YES, we discussed the diagnosis/diagnoses , the treatment options, treatment(s) recommended vs. no treatment. We discussed risks and benefits of treatment options, treatment recommendations vs. no treatment. . Patient educated about the importance of adequate sleep to your mental health. The bedroom should be kept dark to promote restful sleep. The patient should not use their phone or watch TV while in bed, these behaviors can be stimulating and keep the patient awake. 04/16/2024 Other follow up in 3 weeks clonidine: Encouraged to call office or report to the if the patient experiences dizziness or lightheadedness Patient educated on new antipsychotic dosing schedule and side effects. Made aware to not abruptly stop the medication. Made aware to notify the office or go to the ER if experience any abnormal repetitive movements. Also, made aware to notify office of any nausea, vomiting, or dizziness. Made aware to not stop medication abruptly. This is an FDA approved use for this medication. Discussed with patient crisis plan. Provided crisis hotline number. [facility] has good support system. Made aware to contact office if has an increase in suicidal thoughts. If outside of office hours, patient to go to the ER. Patient will call the office with any questions or concerns. Educated on new antidepressant. Made aware of Black Box Warning that it can increase suicidal thoughts, especially in minors. If this happens go to the ER. Make the office aware or go to the ER, if you experience seizures or an increase in activity and irritability. Made aware to not abruptly stop medication. Medication can cause headache and nausea. . Denies suicidal or homicidal ideation or plan. No morbid thoughts. Interpersonal issues discussed. Support provided Insight oriented/ Behavior modifying/ Supportive therapy . Lamictal: Patient educated on dosing schedule of medication. Made aware to make prescriber aware of any unexplainable rash or flu-like symptoms. If outside of office hours patient should report to the ER. Made aware to contact the office with any questions or concerns. Provided crisis hotline number. Patient states has good support system. Will call office or report to the ER with suicidal ideations. Patient educated about the importance of adequate sleep to your mental health. The bedroom should be kept dark to promote restful sleep. The patient should not use their phone or watch TV while in bed, these behaviors can be stimulating and keep the patient awake. . Informed consent obtained: YES, we discussed the diagnosis/diagnoses , the treatment options, treatment(s) recommended vs. no treatment. We discussed risks and benefits of treatment options, treatment recommendations vs. no treatment. . 05/07/2024 Other follow up in 2 weeks Educated on new antidepressant. Made aware of Black Box Warning that it can increase suicidal thoughts, especially in minors. If this happens go to the ER. Make the office aware or go to the ER, if you experience seizures or an increase in activity and irritability. Made aware to not abruptly stop medication. Medication can cause headache and nausea. . Denies suicidal or homicidal ideation or plan. No morbid thoughts. Interpersonal issues discussed. Support provided Insight oriented/ Behavior modifying/ Supportive therapy . Patient educated on new antipsychotic dosing schedule and side effects. Made aware to not abruptly stop the medication. Made aware to notify the office or go to the ER if experience any abnormal repetitive movements. Also, made aware to notify office of any nausea, vomiting, or dizziness. Made aware to not stop medication abruptly. This is an FDA approved use for this medication. Discussed with patient crisis plan. Provided crisis hotline number. States has good support system. Made aware to contact office if has an increase in suicidal thoughts. If outside of office hours, patient to go to the ER. Patient will call the office with any questions or concerns. clonidine: Encouraged to call office or report to the if the patient experiences dizziness or lightheadedness Patient educated about the importance of adequate sleep to your mental health. The bedroom should be kept dark to promote restful sleep. The patient should not use their phone or watch TV while in bed, these behaviors can be stimulating and keep the patient awake. . Informed consent obtained: YES, we discussed the diagnosis/diagnoses , the treatment options, treatment(s) recommended vs. no treatment. We discussed risks and benefits of treatment options, treatment recommendations vs. no treatment. . Plan Of Treatment Pending Test Test Name Order Date CBC w/ Auto Diff 02/16/2025 CMP 02/16/2025 Lipid Panel 02/16/2025 TSH 02/16/2025 Vit D 02/16/2025 Next Appt Details Provider Name:Gladys Augusto garrido, 03/18/2025 04:15:00 PM, [address] [place], [address], Provider Name:Sumi Randall, 06/22/2025 04:30:00 PM, [address], [place], [address], Provider Name:Sumi Randall, [facility]/29[facility]2025 11:25:00 [facility] [place], [address], Provider Name:Sumi Randall, 07/13/2025 04:00:00 PM, [facility] [address], [place], [address], Insurance Providers Payer Name Payer Address Payer Phone Subscriber Number Group Number Insured Name Patient Relationship to Insured Coverage Start Date Coverage End Date [facility] Medicaid [address] [place] [phone] [id number] CEZAR PRINCE Self - patient is the insured Wrap [facility] [address] [place] [phone] [id number] KINDERMA N, CEZAR Self - patient is the insured 5 [place]ICAID [place] [address] [place] [address] [phone] [id number] JOCELINE N, CEZAR Self - patient is the insured 2 Dental [employer] [place] Medicaid [address] [place] [address] [id number] KINDERDARLINE N, CEZAR Self - patient is the insured 2 [facility] MEDICAID [place] [address] [place] [address] [id number] JOCELINE N, CEZAR Self - patient is the insured 2 Dental Wrap [facility] [address] [place] [address] [id number] JOCELINE NCEZAR Self - patient is the insured 2 Medical (General) History Medical History History ICD Code ANXIETY DEPRESSION Substance use disorder F19.90 Surgical History Surgery Date(Month/Year) Left wrist surgery Hospitalization History Reason Date(Month/Year) [facility] [place]- several times Head trauma 2007
--- OUTSIDE RECORDS SUMMARY | 2025-03-18 11:36 | XMS_ITS | CCD ---
Author Organization [facility] Care Team Providers Care Wrapper Counter Name Role Phone DENIS DIEGO Unavailable Unavailable [...] (1 source) Sulfonamides (Antibiotic) Drug Allergy 01-06-2014 [facility] (2 sources) Sulfonamides (Antibiotic) Drug allergy (disorder) 06-29-2013 [facility] Rep[facility] Medications Completed/Discontinued Medications Medication Drug Class(es) [...] Name Value Interpretation Reference Range Facility PAP [id number] Age Gdlnon 2023 IGP Aptima HPV ACOG Note Invalid Interpretation Code [facility] Comment on above: Result Comment: TEST S RESULT FLAG UNITS REF RANGE LAB Clinician Provided Cytology Information Source.............Cervix No. of containers..01 ThinPrep Vial Age Algo ACOG Suyapa... 30-65 01 FLAG LEGEND: L-Low Normal,H-High Normal,LL-Alert Low,HH-Alert High <-Panic Low,>-Panic High,A-Abnormal,AA-Critical Abnormal Performed at: 01 =G [facility] [address] [place] [address] Teri Blanchard MD, Performed at: =G [facility] [address] [place], [place] [id number] MD Lo Williamson Performed By: #### 1 [id number], [id number] #### [facility] [address] [place] [address] PAP [id number] 02-08-2023 Cytology report Cyto stain Doc (Cvx/Vag) Note Invalid Interpretation Code [facility] Comment on above: Result Comment: TEST S RESULT FLAG UNITS REF RANGE LAB DIAGNOSIS: 02 NEGATIVE FOR INTRAEPITHELIAL LESION OR MALIGNANCY. Specimen adequacy: 02 Satisfactory for evaluation. Endocervical and/or squamous metaplastic cells (endocervical component) are present. Performed by: Stone Wolff, Photographic Engineer (ASCP) . 02 Note: Note 02 The Pap smear is a screening test designed to aid in the detection of premalignant and malignant conditions of the uterine cervix. It is not a diagnostic procedure and should not be used as the sole means of detecting cervical cancer. Both false-positive and false-negative reports do occur. Test Methodology: Note 02 The [employer](R) Cell Repairer was unable to read this specimen. Therefore a manual review was performed. FLAG LEGEND: L-Low Normal,H-High Normal,LL-Alert Low,HH-Alert High <-Panic Low,>-Panic High,A-Abnormal,AA-Critical Abnormal Performed at: 02 [facility] [address] [place] [address] Teri Blanchard MD, Performed By: #### 1 [id number], [id number] #### [facility] [address] [place] [address] HPV 16+18+31+33+35+39+4 5+51+52+56+58+59+66 +68 DNA Probe+sig amp Ql (Cvx) Negative Invalid Interpretation Code Negative [facility] Comment on above: Result Comment: This nucleic acid amplification test detects fourteen high-risk HPV types (16,18,31,33,35,39,45,51,52,56,58,59,66,68) without differentiation. Performed By: #### 1 [id number], [id number] #### [facility] [address] [place] [address] PAP [id number] Age Gdlnon 2023 Collection Technique BRUSH-SPATULA Normal [facility] Comment on above: Performed By: #### 1 [id number], [id number] #### [facility] [address] [place] [address] Gynecological Body Site CERVIX Normal [facility] Comment on above: Performed By: #### 1 [id number], [id number] #### [facility] [address] [place] [address] Physician Orderon 02-06-2023 Physician Order [id number] .[id number]:127 Normal [facility] HEPATITIS PANEL, ACUTEon HBsAg Screen Negative Normal Negative [facility] Comment on above: Performed By: #### H EPACUT #### [facility] [address] [address] [address] Jayla Erazo HCV AB >11.0 Critically high 0.0-0.[address] [facility] Comment on above: Result Comment: . Performed By: #### H EPACUT #### [facility] [address] [address] [address] Jayla Erazo HCV log10 Normal [facility] Comment on above: Performed By: #### H EPACUT #### [facility] [address] [address] [address] Jayla Erazo Hep A Ab, IgM Negative Normal Negative [facility] Comment on above: Performed By: #### H EPACUT #### [facility] [address] [address] [address] Jayla Erazo Hep B Core Ab, IgM Negative Normal Negative [facility] Comment on above: Performed By: #### H EPACUT #### [facility] [address] [address] [address] Jayla Erazo Hep C Quantitation Not detected Normal [facility] Comment on above: Performed By: #### H EPACUT #### [facility] [address] [address] [address] Jayla Erazo Interpretation Comment Normal [facility] Comment on above: Result Comment: Posi tive HCV antibody screen without the presence of HCV RNA is consistent with a resolved past infection or a false positive HCV antibody. Consider repeat testing after one month. Performed By: #### H EPACUT #### [facility] [address] [address] [address] Jayla Erazo Test Information: Comment Normal [facility] Comment on above: Result Comment: The quantitative range of this assay is 15 IU/mL to 100 million IU/mL. Performed By: #### H EPACUT #### [facility] [address] [place] [address] Dr. Jayla Erazo HIV 1 AND 2 WITH REFLEXon HIV Screen 4th Generation wRfx Non-Reactive Normal Non Reactive [facility] Comment on above: Result Comment: HIV Negative HIV-1/HIV-2 antibodies and HIV-1 p24 antigen were NOT detected. There is no laboratory evidence of HIV infection. Performed By: #### H IV12 #### [facility] [address] [place] [address] Dr. Jayla Erazo RPR QUANTon 05-27-2022 Rapid Plasma Reagin, Quant Non-Reactive Normal NonRea<1:1 [facility] Comment on above: Result Comment: Plea se Note: This test does not meet current guidelines for screening and diagnosis of syphilis. This test is intended for following treatment response in patients being treated for syphilis infection. To screen for syphilis infection, a reflex cascade that includes both RPR and a treponema-specific assay should be utilized, such as Treponema pallidum (Syphilis) Screening [place] (710626) or Rapid Plasma Reagin (RPR) Test With Reflex to Quantitative RPR and Confirmatory Treponema pallidum Antibodies (735793). Performed By: #### R PRQ #### [facility] [address] [place] [address] Dr. Jayla Erazo CBC AUTO DIFFon 05-25-2022 BASO # 0.1 103/ul Normal 0.0-0.1 [facility] Comment on above: Performed By: #### C BC #### [facility] [address] [place] [address] Dr. Jayla Erazo Basophils/100 WBC (Bld) 0.9 % Normal 0.2-2.0 [facility] Comment on above: Performed By: #### C BC #### [facility] [address] [place] [address] Dr. Jayla Erazo EO # 0.3 103/ul Normal 0.0-0.7 [facility] Comment on above: Performed By: #### C BC #### [facility] [address] [place] [address] Dr. Jayla Erazo Eosinophils/100 WBC (Bld) 5.1 % Normal 0.9-7.0 [facility] Comment on above: Performed By: #### C BC #### [facility] [address] [place] [address] Dr. Jayla Erazo Erythrocyte distribution width (RBC) [Ratio] 12.4 % Normal 11.0-15.0 [facility] Comment on above: Performed By: #### C BC #### [facility] [address] [place] [address] Dr. Jayla Erazo Hematocrit (Bld) [Volume fraction] 38.8 % Normal 36.0-48.0 [facility] Comment on above: Performed By: #### C BC #### [facility] [address] [place] [address] Dr. Jayla Erazo Hemoglobin (Bld) [Mass/Vol] 13.0 g/dL Normal 12.0-16.0 [facility] Comment on above: Performed By: #### C BC #### [facility] [address] [place] [address] Dr. Jayla Erazo IG # 0.02 10e3/ul Normal 0.00-0.03 [facility] Comment on above: Performed By: #### C BC #### [facility] [address] [place] [address] Dr. Jayla Erazo IG % 0.3 % Normal 0.0-0.5 [facility] Comment on above: Performed By: #### C BC #### [facility] [address] [place] [address] Dr. Jayla Erazo LYMPH # 2.2 103/ul Normal 1.2-3.8 [facility] Comment on above: Performed By: #### C BC #### [facility] [address] [place] [address] Dr. Jayla Erazo Lymphocytes/100 WBC (Bld) 32.8 % Normal 20.5-60.0 [facility] Comment on above: Performed By: #### C BC #### [facility] [address] [place] [address] Dr. Jayla Erazo MANUAL DIFF REQ NO Normal [facility] Comment on above: Performed By: #### C BC #### [facility] [address] [place] [address] Dr. Jayla Erazo MCH (RBC) [Entitic mass] 29.2 pg Normal 26.7-34.0 [facility] Comment on above: Performed By: #### C BC #### [facility] [address] [address] [address] Jayla Erazo MCHC (RBC) [Mass/Vol] 33.5 g/dL Normal 29.9-35.2 [facility] Comment on above: Performed By: #### C BC #### [facility] [address] [address] [address] Jayla Erazo MCV (RBC) [Entitic vol] 87.2 fL Normal 81.0-99.0 [facility] Comment on above: Performed By: #### C BC #### [facility] [address] [address] [address] Jayla Erazo MONO # 0.4 103/ul Normal 0.3-0.8 [facility] Comment on above: Performed By: #### C BC #### [facility] [address] [place] [address] Dr. Jayla Erazo Monocytes/100 WBC (Bld) 6.2 % Normal 1.7-12.0 [facility] Comment on above: Performed By: #### C BC #### [facility] [address] [place] [address] Dr. Jayla Erazo NEUT # 3.6 103/ul Normal 1.4-6.5 [facility] Comment on above: Performed By: #### C BC #### [facility] [address] [address] [address] Jayla Erazo Neutrophils/100 WBC (Bld) 54.7 % Normal 43.0-75.0 [facility] Comment on above: Performed By: #### C BC #### [facility] [address] [address] [address] Jayla Erazo Platelet mean volume (Bld) [Entitic vol] 7.9 fL Critically low 9.5-13.5 [facility] Comment on above: Performed By: #### C BC #### [facility] [address] [address] [address] Jayla Erazo PLT 251 103/ul Normal 150-450 [facility] Comment on above: Performed By: #### C BC #### [facility] [address] [address] [address] Jayla Erazo RBC 4.45 106/ul Normal 4.20-5.40 [facility] Comment on above: Performed By: #### C BC #### [facility] [address] [address] [address] Jayla Erazo WBC 6.6 103/ul Normal 4.0-11.0 [facility] Comment on above: Performed By: #### C BC #### [facility] [address] [address] [address] Jayla Erazo PROF 14(COMP METB)on 022 Albumin [Mass/Vol] 4.5 g/dL Normal 3.4-5.0 [facility] Comment on above: Performed By: #### C MP, TSH #### [facility] [address] [place] [address] Dr. Jayla Erazo Albumin/Globulin [Mass ratio] 1.2 {ratio} Normal [facility] Comment on above: Performed By: #### C MP, TSH #### [facility] [address] [place] [address] Dr. Jayla Erazo ALP [Catalytic activity/Vol] 87 U/L Normal 46-116 [facility] Comment on above: Performed By: #### C MP, TSH #### [facility] [address] [address] [address] Jayla Erazo ALT [Catalytic activity/Vol] 21 U/L Normal 14-59 [facility] Comment on above: Performed By: #### C MP, TSH #### [facility] [address] [place] [address] Dr. Jayla Erazo Anion gap [Moles/Vol] 9.4 mmol/L Normal [facility] Comment on above: Performed By: #### C MP, TSH #### [facility] [address] [address] [address] Jayla Erazo AST [Catalytic activity/Vol] 14 U/L Critically low 15-37 [facility] Comment on above: Performed By: #### C MP, TSH #### [facility] [address] [address] [address] Jayla Erazo Bilirubin [Mass/Vol] 0.5 mg/dL Normal 0.2-1.0 [facility] Comment on above: Performed By: #### C MP, TSH #### [facility] [address] [place] [address] Dr. Jayla Erazo Calcium [Mass/Vol] 9.5 mg/dL Normal 8.5-10.1 [facility] Comment on above: Performed By: #### C MP, TSH #### [facility] [address] [place] [address] Dr. Jayla Erazo Chloride [Moles/Vol] 101 mmol/L Normal 98-107 [facility] Comment on above: Performed By: #### C MP, TSH #### [facility] [address] [place] [address] Dr. Jayla Erazo CO2 [Moles/Vol] 34.2 mmol/L Critically high 21.0-32.0 [facility] Comment on above: Performed By: #### C MP, TSH #### [facility] [address] [place] [address] Dr. Jayla Erazo Creatinine [Mass/Vol] 0.90 mg/dL Normal 0.55-1.02 [facility] Comment on above: Performed By: #### C MP, TSH #### [facility] [address] [place] [address] Dr. Jayla Erazo EGFR-AF PANAMANIAN >60 Normal >=60 [facility] Comment on above: Performed By: #### C MP, TSH #### [facility] [address] [place] [address] Dr. Jayla Erazo EGFR-NON AF PANAMANIAN >60 Normal >=60 [facility] Comment on above: Performed By: #### C MP, TSH #### [facility] [address] [place] [address] Dr. Jayla Erazo Globulin (S) [Mass/Vol] 3.8 g/dL Normal [facility] Comment on above: Performed By: #### C MP, TSH #### [facility] [address] [address] [address] Jayla Erazo Glucose [Mass/Vol] 80 mg/dL Normal 74-106 [facility] Comment on above: Performed By: #### C MP, TSH #### [facility] [address] [address] [address] Jayla Erazo Potassium [Moles/Vol] 4.6 mmol/L Normal 3.5-5.1 [facility] Comment on above: Performed By: #### C MP, TSH #### [facility] [address] [address] [address] Jayla Erazo Protein [Mass/Vol] 8.3 g/dL Critically high 6.4-8.2 [facility] Comment on above: Performed By: #### C MP, TSH #### [facility] [address] [place] [address] Dr. Jayla Erazo Sodium [Moles/Vol] 140 mmol/L Normal 136-145 [facility] Comment on above: Performed By: #### C MP, TSH #### [facility] [address] [place] [address] Dr. Jayla Erazo Urea nitrogen [Mass/Vol] 14.0 mg/dL Normal 7.0-18.0 [facility] Comment on above: Performed By: #### C MP, TSH #### [facility] [address] [place] [address] Dr. Jayla Erazo Urea nitrogen/Creatinine [Mass ratio] 15.6 mg/mg Normal [facility] Comment on above: Performed By: #### C MP, TSH #### [facility] [address] [place] [address] Dr. Jayla Erazo TSHon 05-25-2022 TSH 1.602 uIU/mL Normal 0.358-3.740 [facility] Comment on above: Performed By: #### C MP, TSH #### [facility] [address] [place] [address] Dr. Jayla Erazo VITAMIN D 25 OHon 05-25-2022 VIT D 25-OH 17.1 ng/mL Normal [facility] Comment on above: Performed By: #### V ITAD #### [facility] [address] [address] [address] Jayla Erazo VIT D RANGES SEE BELOW Normal [facility] Comment on above: Result Comment: <20 ng/mL Vit D deficient 20 - <30 ng/mL Vit D insufficient 30 - 100 ng/mL Vit D sufficient >100 ng/mL Potential Toxicity Performed By: #### V ITAD #### [facility] [address] [address] [address] Jayla Erazo [facility] SARS-CoV-2 (COVID-19) RNA SHIRAZ+probe Ql (Unsp spec) Not detected Normal NOT DETECTED [facility] Comment on above: Result Comment: This test is not yet approved or cleared by the [place] FDA. When there are no FDA-approved or cleared tests available, and other criteria are met, FDA can make tests available under an emergency access mechanism called an Emergency Use Authorization (EUA). The EUA for this test is supported by the Nanotechnology Engineering Technologist of Health and Human Service's (HHS's) declaration [...] SARS-CoV-2. Performed By: #### C VDTBH #### [facility] [address] [address] [address] Jayla Erazo Consulton 05-17-2018 HIM IP Note OR Ebd Special Education Teacher Normal [facility] Discharge Summaryon 05-17-20 18 HIM IP Note OR Ebd Special Education Teacher Normal [facility] ED Noteon 05-17-2018 HIM IP Note OR Ebd Special Education Teacher Normal [facility] HIM IP Note OR Ebd Special Education Teacher Normal [facility] HIM IP Note OR Ebd Special Education Teacher Normal [facility] HIM IP Note OR Ebd Special Education Teacher Normal [facility] HIM IP Note OR Ebd Special Education Teacher Normal [facility] ED Provider Noteon 8 HIM IP Note OR Ebd Special Education Teacher Normal [facility] History and Physicalon 05-17 HIM IP Note OR Ebd Special Education Teacher Normal [facility] Plan of Careon 05-17-2018 HIM IP Note OR Ebd Special Education Teacher Normal [facility] HIM IP Note OR Ebd Special Education Teacher Normal [facility] Procedureon 05-17-2018 HIM IP Note OR Ebd Special Education Teacher Normal [facility] Progress Noteon 05-17-2018 HIM IP Note OR Ebd Special Education Teacher Normal [facility] Encounters Encounter Date Encounter Type Care Provider Facility Start: 02-05-2023 End: 02-06-2023 ambulatory WILLIAM BENDER Facility:[facility] [facility] Start: 07-03-2022 End: 07-04-[address] RADHA WILSON Facility:[facility] Start: 05-25-2022 End: 05-26-[address] DOCTOR YI Facility:[facility] Start: 04-20-[address] RADHA WILSON Faci lity:[facility] Start: 11-08-2021 End: 11-08-2021 ambulatory POLINA MALONE Facility:[facility] Start: 05-17-2018 End: 05-17-2018 Patient encounter DENIS DIEGO [facility] Start: 02-10-2014 End: 02-10-2014 Telephone encounter Tre [...] 03-30-2021 Influenza vaccination INFLUENZA (Sea son Ended) [facility] Start: 2014 HPV TESTING HPV TESTING [facility] Start: 2005 PAP TESTING PAP TESTING [facility] Start: 2003 Urine microalbumin profile DTAP,TDAP ,TD (1 - Tdap) [facility] Start: 2002 HEPATITIS C SCREENING HEPATITIS C SC REENING [facility] Start: 2002 HIV SCREENING HIV SCREENING [facility] Start: 1996 Adult depression scr eening assessment DEPRESSION SCREENING [facility] Payers Date Payer Category Payer Medicare [id number] 2013 Medicaid MEDICAID [facility] MEDICAID [id number] 2013-Present Medicaid [id number] 2013 Medicare MEDICARE MEDICAR E B [id number] 2013-Present [place] [id number] 1984 Unknown [id number] 1984 Unknown [id number] 1984 Unknown [id number] 1984 Unknown [id number] 1984 Unknown [id number] 1984 Unknown [id number] 1984 Unknown [id number] 1959 Medicaid [id number] Social History Date Type Detail Facility Start: 01-06-2014 Tobacco smoking stat us NHIS Current every day smoker [facility] Start: 01-06-2014 Tobacco use and exposure Never used [facility] Start: 01-06-2014 Alcohol intake Current drinke r of alcohol (finding) [facility] Start: 10-01-2013 [facility] Start: 1984 Sex Assigned At Not on file [facility] Note 02-10-2014 Telephone Encounter - Lucretia [...] no further questions documented in this encounter [facility] Summary Purpose Family History No Family History Records FoundNo Family History Records FoundNo Family History Records Found Advance Directives No Advanced Directives Records FoundNo Advanced Directives Records FoundNo Advanced Directives Records Found Additional Source Comments INFORMATION SOURCE (unrecogn ized section and content) DATE CREATED AUTHOR 06/17/2018 [facility] DATE CREATED AUTHOR AUTHOR'S ORGANIZ ATION 07/08/2022 [facility] DATE CREATED AUTHOR AUTHOR'S ORGANIZ ATION 02/09/2023 [facility] Source Comments (unrecognize d section and content) In the event this informatio n is protected by the Federal Confidentiality of Alcohol and Drug Abuse Patient Records regulations: The Federal rules restrict any use of the information to criminally investigate or prosecute any alcohol or drug abuse patient.[facility] FOR RECORDS PERTAINING TO PATIENTS WHO ARE [...] BE BASED ON THE PRIMARY CLINICAL RECORDS. [facility] [employer] [facility]. provides no warranty or guarantee of the accuracy or completeness of information in this document.
[2025-03-18 14:42] LABS: Alanine Aminotransferase 22 U/L (14-59); Albumin Globulin Ratio 1.4; Albumin Level 4.7 g/dL (3.4-5.0); Alkaline Phosphatase 89 U/L (46-116); Anion Gap 20.0; Aspartate Amino Transferase 23 U/L (15-37); Blood Urea Nitrogen 11.0 mg/dL (7.0-18.0); Calcium 9.0 mg/dL (8.5-10.1); Carbon Dioxide 21.5 mmol/L (21.0-32.0); Chloride 104 mmol/L (98-107); Estimated GFR (African America >60 (>=60 mL/min/1.73m^2); Estimated GFR (Non-African Ame >60 (>=60 mL/min/1.73m^2); Globulin 3.4 g/dL; Glucose 79 mg/dL (74-106); Potassium 4.5 mmol/L (3.5-5.1); Sodium 141 mmol/L (136-145); Total Protein 8.1 g/dL (6.4-8.2)
[2025-03-19 12:09] LABS: Rapid Plasma Reagin, Quant Non Reactive titer (NonRea<1:1)
== END 2025-03-18 11:29 | disposition home or self-care (01) ==
LOC: LAB 11:30
DX: F41.1 Generalized anxiety disorder (principal); Z11.3 Encounter for screening for infections with a predominantly sexual mode of transmission; Z13.0 Encounter for screening for diseases of the blood and blood-forming organs and certain disorders involving the immune mechanism; Z11.4 Encounter for screening for human immunodeficiency virus [HIV]; Z11.59 Encounter for screening for other viral diseases; Z11.8 Encounter for screening for other infectious and parasitic diseases
CPT/HCPCS: 36415; 80053; 80061; 82652; 84443; 85025; 86480; 86592; 86704; 87340; 87389; 87522

== ENCOUNTER 2025-03-23 12:03 | Outpatient (OUT) | payer OTHER, SELFPAY ==
--- NOTE | 2025-03-23 12:30 | ECG_ITS ---
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
== END 2025-03-23 12:04 | disposition home or self-care (01) ==
DX: F41.1 Generalized anxiety disorder (principal); F39 Unspecified mood [affective] disorder
CPT/HCPCS: 93005

== ENCOUNTER 2025-03-24 11:18 | Outpatient (OUT) | payer OTHER, SELFPAY ==
--- OUTSIDE RECORDS SUMMARY | 2025-03-18 12:15 | XMS_ITS ---
Author Organization [employer] [facility] [place] Address [address] [place] [address] Care Team Providers Care Corporate Wellness Coordinator Name Role Phone Gladys Rosado Primary Care Provider [phone] REASON FOR VISIT 1 mo T Medications Medication SIG (Take, Route, Frequency, Duration) Notes Start Date End Date Status QUEtiapine Fumarate 50 MG TAKE 1 TABLET BY MOUTH EVERY DAY AT BEDTIME FOR 30 DAYS as needed for sleep Once a day as needed for sleep; Duration: 30 days Active cloNIDine HCl 0.2 MG 1 tablet Orally Onc e a day at bedtime as needed for sleep; Duration: 30 days Active buPROPion HCl ER (XL) 300 MG 1 tablet in the morning Orally Once a day; Duration: 30 days Active Rexulti 3 MG TAKE 1 TABLET BY WALDO TH EVERY DAY Orally Once a day; Duration: 30 days Active ARIPiprazole 20 MG 1 tablet Orally Once a day; Duration: 30 days Active Amoxicillin-Pot Clavulanate 875-125 MG 1 tablet Orally every 12 hrs; Duration: 10 day(s) Not-Taking Amitriptyline HCl 25 MG 1 tablet at bedt korina Orally Once a day; Duration: 30 day(s) 06/05/2022 Not-Taking Amoxicillin Not-Taki ng buPROPion HCl ER (XL) 150 MG 1 tablet in the morning Orally Once a day; Duration: 30 days Not-Takin g lamoTRIgine 200 MG TAKE 1 TABLET BY WALDO TH EVERY DAY FOR 30 DAYS Orally Once a day; Duration: 30 days Not-Taking Pataday 0.2 % 1 drop into affected eye Ophthalmic Once a day; Duration: 30 days 01/08/2023 Active Cetirizine HCl 10 MG TAKE 1 TABLET BY MO UTH EVERY DAY; Duration: 30 Active Montelukast Sodium 10 MG TAKE 1 TABLET B Y MOUTH EVERY DAY FOR 30 DAYS; Duration: 30 Active Nurtec 75 MG 1 tablet on the tong ue and allow to dissolve Orally Active Ibuprofen 800 MG 1 tablet with food o r milk as needed Orally Three times a day 07/20/2022 Active Propranolol HCl 20 MG 1 tablet on an emp ty stomach Orally daily; Duration: 30 days 01/01/2025 Active Encounters Encounter Location Date Provider Diagnosis [facility] [address] [place] [address] 03/18/2025 Gladyscoy Rosado Generalized anxie ty disorder F41.1 ; Depression F32.9 ; Substance use disorder F19.90 and Episodic mood disorder F39 Assessments Encounter Date Diagnosis (ICD Code) Assessment Notes Treatment Notes Treatment Clinical Notes Section Notes 03/18/2025 Generalized anxiety disorder (ICD-10 - F41.1) Patient [...] patient crisis plan. Provided crisis hotline number. [facility] has good support system. Made aware to contact office if has an increase in suicidal thoughts. If outside of office hours, patient to go to the ER. Patient will call the office with any questions or concerns. clonidine: Encouraged to call office or report to the if the patient experiences dizziness or lightheadedness 03/18/2025 Depression (ICD-10 - F32.9) 03/18/2025 Substance use disorder (ICD-10 - F19.90) 03/18/2025 Episodic mood disorder (ICD-10 - F39) Educated [...] patient crisis plan. Provided crisis hotline number. [facility] has good support system. Made aware to [...] problems All questions and concerns discussed . Plan Of Treatment Medication Medication Name Sig Start Date Stop Date Notes QUEtiapine Fumarate 50 MG TAKE 1 TABLET BY MOUTH EVERY DAY AT BEDTIME FOR 30 DAYS as needed for sleep Once a day as needed for sleep; Duration: 30 days cloNIDine HCl 0.2 MG 1 tablet Orally Onc e a day at bedtime as needed for sleep; Duration: 30 days buPROPion HCl ER (XL) 300 MG 1 tablet in the morning Orally Once a day; Duration: 30 days Rexulti 3 MG TAKE 1 TABLET BY WALDO TH EVERY DAY Orally Once a day; Duration: 30 days ARIPiprazole 20 MG 1 tablet Orally Once a day; Duration: 30 days Propranolol HCl 20 MG 1 tablet on an emp ty stomach Orally daily; Duration: 30 days 01/01/2025 Treatment Notes Assessment Notes Generalized anxiety disorder Patient educated on antipsychotic dosing schedule and [...] patient crisis plan. Provided crisis hotline number. [facility] has good support system. Made aware to contact office if has an increase in suicidal thoughts. If outside of office hours, patient to go to the ER. Patient will call the office with any questions or concerns. clonidine: Encouraged to call office or report to the if the patient experiences dizziness or lightheadedness Episodic mood disorder Educated on antidepressant. Made aware of Black [...] patient crisis plan. Provided crisis hotline number. [facility] has good support system. Made aware to contact office if has an increase in suicidal thoughts. If outside of office hours, patient to go to the ER. Patient will call the office with any questions or concerns. . Informed consent obtained: YES, we discussed the diagnosis/diagnoses, the treatment options, treatment(s) recommended vs. no treatment. We discussed risks and benefits of treatment options, treatment recommendations vs. no treatment. . . Pt is to continue current treatment plan Has good tolerability and compliance with medication Call for problems All questions and concerns discussed . Pending Test Test Name Order Date ECG 12 lead ECG 03/18/2025 Next Appt Details Follow Up: 2 Months, Reason: Provider Name:Gladys garrido, 05/20/2025 03:45:00 PM, [address], [place], [address], Provider Name:Sumi Randall, 06/22/2025 04:30:00 PM, [place], [address], Provider Name:Sumi Randall, 06/29/2025 11:25:00 AM, [address], [place], [address], Provider Name:Sumi Randall, 07/13/2025 04:00:00 PM, [address] [place], [address], Progress Notes * CEZAR BUTLER ADOB:[birth year] (39 yo F)Acc No.[id number]:03/18/2025 Behavioral Health Patient: CEZAR SIM Appointment Provider: Joann ROSADO PMHNP-BC :1985 A ge:39 Y S ex:Female Date:03/18/2025 Address:[address] [place] [address] [place], [id number] Subjective: * Chief Complaints: * 1 mo T * HPI: C onstitutional: Patient or guardian consent to the virtual appointment. Verbalized understanding that patient/guardian are financially responsible for visit. Patient is an established patient. The visit via synchronous audio and video only with the use of Doximetry. Patient is in their home and provider is in their office. Present during the appointment are the provider and pt Medical decision: assess effective ness of meds Start:429 S top:440 P t is tolerating meds well and taking medications daily. . Pt states that she is doing well Refused to have her labwork done. State sthat she doesn't like getting her blood work done.? Will order an updated EKG . Pt denies mood fluctuation. Energy and motivation are stable. Depressive symptoms are not persistent. Denies episodes of having sadness, anhedonia, isolating behaviors, or crying spells. Anxiety controlled. Concentration intact without distractibility. . Sleeping through the night and feels rested upon waking up. Denies Nightmares. Appetite is good. . Denies Euphoria. Pervasive irritability is controlled today. Meaningful relationships intact. Denies increased goal-oriented behavior or increase in purposeless activity. Attending work/school as scheduled. . Denies suicidal or homicidal ideation or plan. No morbid thoughts. Interpersonal issues discussed. Support provided. Insight oriented/ Behavior modifying/ Supportive therapy . Plan: Would like to continue current tx plan . * ROS: C ONSTITUTIONAL: No fever, chills, sweats, weakness SKIN: No jaundice, rash, lesions, petechiae GASTROINTESTINAL: No nausea, vomiting, diarrhea, or GI bleeding MUSCULOSKELETAL: No muscle pain or weakness NEUROLOGIC: No headache, dizziness, numbness, or weakness . * Medical History: * Surgical History: * Hospitalization/Major Diagno stic Procedure: * Medications: T akingMontelukast Sodium 10 MG Tablet TAKE 1 TABLET BY MOUTH EVERY DAY FOR 30 DAYS Nurtec 75 MG Tablet Disintegrating 1 tablet on the tongue and allow to dissolve Orally Ibuprofen 800 MG Tablet 1 tablet with food or milk as needed Orally Three times a day Pataday 0.2 % Solution 1 drop into affected eye Ophthalmic Once a day Cetirizine HCl 10 MG Tablet TAKE 1 TABLET BY MOUTH EVERY DAY buPROPion HCl ER (XL) 300 MG Tablet Extended Release 24 Hour 1 tablet in the morning Orally Once a day Rexulti 3 MG Tablet TAKE 1 TABLET BY MOUTH EVERY DAY Orally Once a day ARIPiprazole 20 MG Tablet 1 tablet Orally Once a day QUEtiapine Fumarate 50 MG Tablet TAKE 1 TABLET BY MOUTH EVERY DAY AT BEDTIME FOR 30 DAYS as needed for sleep Once a day as needed for sleep cloNIDine HCl 0.2 MG Tablet 1 tablet Orally Once a day at bedtime as needed for sleep Propranolol HCl 20 MG Tablet 1 tablet on an empty stomach Orally daily Taking Montelukast Sodium 10 MG Tablet TAKE 1 TABLET BY MOUTH EVERY DAY FOR 30 DAYS Taking Nurtec 75 MG Tablet Disintegrating 1 tablet on the tongue and allow to dissolve Orally Taking Ibuprofen 800 MG Tablet 1 tablet with food or milk as needed Orally Three times a day Taking Pataday 0.2 % Solution 1 drop into affected eye Ophthalmic Once a day Taking Cetirizine HCl 10 MG Tablet TAKE 1 TABLET BY MOUTH EVERY DAY Taking buPROPion HCl ER (XL) 300 MG Tablet Extended Release 24 Hour 1 tablet in the morning Orally Once a day Taking Rexulti 3 MG Tablet TAKE 1 TABLET BY MOUTH EVERY DAY Orally Once a day Taking ARIPiprazole 20 MG Tablet 1 tablet Orally Once a day Taking QUEtiapine Fumarate 50 MG Tablet TAKE 1 TABLET BY MOUTH EVERY DAY AT BEDTIME FOR 30 DAYS as needed for sleep Once a day as needed for sleep Taking cloNIDine HCl 0.2 MG Tablet 1 tablet Orally Once a day at bedtime as needed for sleep Taking Propranolol HCl 20 MG Tablet 1 tablet on an empty stomach Orally daily Not-Taking/PRNbuPROPion HCl ER (XL) 150 MG Tablet Extended Release 24 Hour 1 tablet in the morning Orally Once a day lamoTRIgine 200 MG Tablet TAKE 1 TABLET BY MOUTH EVERY DAY FOR 30 DAYS Orally Once a day Amoxicillin-Pot Clavulanate 875-125 MG Tablet 1 tablet Orally every 12 hrs Amitriptyline HCl 25 MG Tablet 1 tablet at bedtime Orally Once a day Amoxicillin Medication List reviewed and reconciled with the patientNot-Taking/PRN buPROPion HCl ER (XL) 150 MG Tablet Extended Release 24 Hour 1 tablet in the morning Orally Once a day Not-Taking/PRN lamoTRIgine 200 MG Tablet TAKE 1 TABLET BY MOUTH EVERY DAY FOR 30 DAYS Orally Once a day Not-Taking/PRN Amoxicillin-Pot Clavulanate 875-125 MG Tablet 1 tablet Orally every 12 hrs Not-Taking/PRN Amitriptyline HCl 25 MG Tablet 1 tablet at bedtime Orally Once a day Not-Taking/PRN Amoxicillin Medication List reviewed and reconciled with the patient Objective: * Vitals: * Examination: G eneral Examination: . AIMS EXAM: . AIMS Muscles of Facial Expression: None AIMS Lips and Perioral Area: None AIMS Jaw Area Involuntary Movements: None AIMS Tongue Involuntary Movements: None AIMS Upper Arms, Wrists, Hands, Fingers: None AIMS Lower Legs, Knees, Ankles, Toes: None AIMS Overall Abnormal Movement Severity: None AIMS Incapacitation Abnormal Movement: None AIMS Self Awareness of Abnormal Movement: Aware, None noted AIMS Current Teeth, Denture Problems: No AIMS Movements Disappear in Sleep: No . . MENTAL STATUS EXAM: . Appearance: cooperative, pleasant Behavior/Motor Activity: N/A Gait/Station: N/A Speech: Normal Mood: Good Affect: Full Thought processes/Associations: Logical and goal directed Thought Content: Non-psychotic Cognition/Attention/Memory/Concentration: Alert and oriented x 4; grossly intact attention; memory-recent/remote judged adequate by interviewer Insight: Good Judgement: Good language: Within normal limits Fund of Knowledge: Adequate . Assessment: * Assessment: 1. G eneralized anxiety disorder - F41.1 (Primary) 2 . D epression - F32.9? 3. S ubstance use disorder - F19.90 4 . E pisodic mood disorder - F39 Plan: * Treatment: 2. E pisodic mood disorder Refill buPROPion HCl ER (XL) Tablet Extended Release 24 Hour, 300 MG, 1 tablet in the morning, Orally, Once a day, 30 days, 30, Refills 1; R efill ARIPiprazole Tablet, 20 MG, 1 tablet, Orally, Once a day, 30 days, 30 Tablet, Refills 1. I maging: ECG 12 lead ECG Notes: Educated on antidepressant. Made aware of Black [...] Informed consent obtained: YES, we discussed the diagnosis/diagnoses, the treatment options, treatment(s) recommended vs. no treatment. We discussed risks and benefits of treatment options, treatment recommendations vs. no treatment. . . Pt is to continue current treatment plan Has good tolerability and compliance with medication Call for problems All questions and concerns discussed . * Procedure Codes: 1 160F RVW MEDS BY RX/ IN [id number] SYNCH AUDIO-VIDEO EST SF 10 * Follow Up: 2 Months * Images: * Sign off status: Completed true * Appointment Provider: VANDANA HANSEN Date: 0 03/18/2025 Generated for Dania swanson/Tonja/Emily on: 0 03/24/2025 11:21 AM EDT History and Physical Notes * HPI (History of Present Illness) Category Sub-Category Detail Notes Category Not es Constitutional Patient or guardian consent to the virtual appointment. Verbalized understanding that patient/guardian are financially responsible for visit. Patient is an established patient. The visit via synchronous audio and video only with the use of Doximetry. Patient is in their home and provider is in their office. Present during the appointment are the provider and pt Medical decision: assess effective ness of meds Start:429 Stop:440 Pt is tolerating meds well and taking medications daily. . Pt states that she is doing well Refused to have her labwork done. State sthat she doesn't like getting her blood work done. Will order an updated EKG . Pt denies mood fluctuation. Energy and motivation are stable. Depressive symptoms are not persistent. Denies episodes of having sadness, anhedonia, isolating behaviors, or crying spells. Anxiety controlled. Concentration intact without distractibility. . Sleeping through the night and feels rested upon waking up. Denies Nightmares. Appetite is good. . Denies Euphoria. Pervasive irritability is controlled today. Meaningful relationships intact. Denies increased goal-oriented behavior or increase in purposeless activity. Attending work/school as scheduled. . Denies suicidal or homicidal ideation or plan. No morbid thoughts. Interpersonal issues discussed. Support provided. Insight oriented/ Behavior modifying/ Supportive therapy . Plan: Would like to continue current tx plan Examination Category Sub-Category Detail Notes Category Not es General Examination . AIMS EXAM: . AIMS Muscles of Facial Expression: None AIMS Lips and Perioral Area: None AIMS Jaw Area Involuntary Movements: None AIMS Tongue Involuntary Movements: None AIMS Upper Arms, Wrists, Hands, Fingers: None AIMS Lower Legs, Knees, Ankles, Toes: None AIMS Overall Abnormal Movement Severity: None AIMS Incapacitation Abnormal Movement: None AIMS Self Awareness of Abnormal Movement: Aware, None noted AIMS Current Teeth, Denture Problems: No AIMS Movements Disappear in Sleep: No . . MENTAL STATUS EXAM: . Appearance: cooperative, pleasant Behavior/Motor Activity: N/A Gait/Station: N/A Speech: Normal Mood: Good Affect: Full Thought processes/Associations: Logical and goal directed Thought Content: Non-psychotic Cognition/Attention/Memory/Con centration: Alert and oriented x 4; grossly intact attention; memory-recent/remote judged adequate by interviewer Insight: Good Judgement: Good BH language: Within normal limits Fund of Knowledge: Adequate .
--- OUTSIDE RECORDS SUMMARY | 2025-03-24 11:21 | XMS_ITS | Patient Health Record ---
Author Organization [facility] Eyelation es Address [address] [place] [address] Care Team Providers Care Hide Washer Name Role Phone Gladys Nolasco Primary Care Provider Isamar Chen Unavailable Allergies Allergen (clinical drug ingredient) Drug/Non Drug Allergy documented on EMR Reaction Allergy Type Onset Date Status Substance with sulfonamide structure and antibacterial mechanism of action (substance) Sulfa Antibiotics Unknown Drug Allergy Active Results Component Value Reference Range Notes TSH Reviewed date:03/19/2025 10:14:31 AM Interpretation: Performing Lab: Notes/Report: Lipid Panel Reviewed date:03/19/2025 10:13:39 AM Interpretation: Performing Lab: Notes/Report: Reason For Referral No Information Medications Medication SIG (Take, Route, Frequency, Duration) Notes Start Date End Date Status Montelukast Sodium 10 MG TAKE 1 TABLET B Y MOUTH EVERY DAY FOR 30 DAYS; Duration: 30 Active Nurtec 75 MG 1 tablet on the tong ue and allow to dissolve Orally Active Ibuprofen 800 MG 1 tablet with food o r milk as needed Orally Three times a day 07/20/2022 Active QUEtiapine Fumarate 50 MG TAKE 1 TABLET BY MOUTH EVERY DAY AT BEDTIME FOR 30 DAYS as needed for sleep Once a day as needed for sleep; Duration: 30 days Active Amoxicillin-Pot Clavulanate 875-125 MG 1 tablet Orally every 12 hrs; Duration: 10 day(s) Not-Taking cloNIDine HCl 0.2 MG 1 tablet Orally Onc e a day at bedtime as needed for sleep; Duration: 30 days Active Amitriptyline HCl 25 MG 1 tablet at bedt korina Orally Once a day; Duration: 30 day(s) 06/05/2022 Not-Taking Propranolol HCl 20 MG 1 tablet on an emp ty stomach Orally daily; Duration: 30 days 01/01/2025 Active Amoxicillin Not-Taki ng Pataday 0.2 % 1 drop into affected eye Ophthalmic Once a day; Duration: 30 days 01/08/2023 Active Cetirizine HCl 10 MG TAKE 1 TABLET BY [facility] EVERY DAY; Duration: 30 Active buPROPion HCl ER (XL) 150 MG 1 tablet in the morning Orally Once a day; Duration: 30 days Not-Takin g lamoTRIgine 200 MG TAKE 1 TABLET BY [facility] EVERY DAY FOR 30 DAYS Orally Once a day; Duration: 30 days Not-Taking buPROPion HCl ER (XL) 300 MG 1 tablet in the morning Orally Once a day; Duration: 30 days Active Rexulti 3 MG TAKE 1 TABLET BY [facility] EVERY DAY Orally Once a day; Duration: 30 days Active ARIPiprazole 20 MG 1 tablet Orally Once a day; Duration: 30 days Active Social History Tobacco Use: Social History [...] down, depressed, or hopeless More than h [facility] the days Trouble falling or staying asleep, [...] many cigarettes a day do you smoke? 21-30 Problems Problem Type SNOMED Code ICD Code Onset Dates Problem Status W/U Status Risk Notes Problem Bacterial infectious disease (78400710) Other specified bacterial agents as the cause of diseases classified elsewhere (B96.89) Active confirmed Problem Long QT syndrome (9895128) Long QT syndrome (I45.81) Active confirmed Problem Acute sinusitis (06374550) Acute sinusitis, unspecified (J01.90) Active confirmed Problem Seasonal allergy (674137309) Seasonal allergies (J30.2) Active confirmed Problem Depression (877831104) Depression (F32.9) Active confirmed Problem Migraine (05341561) Migraine without status migrainosus, not intractable, unspecified migraine type (G43.909) Active confirmed Problem Episodic mood disorder (86712993783708) Episodic mood disorder (F39) Active confirmed Problem Substance use disorder (6951585515) Substance use disorder (F19.90) Active confirmed Problem Allergic rhinitis (82416808) Allergic rhinitis, unspecified seasonality, unspecified trigger (J30.9) Active confirmed Problem Generalized anxiety disorder (84099911) Generalized anxiety disorder (F41.1) Active confirmed Vital Signs Heart Rate 59 /min 02/16/2025 Temperature 97.4 degrees Fahrenheit 08/27/2024 Blood pressure diastolic 71 mm Hg 02/16/2025 Oximetry 98 % 02/16/2025 Height 66 in 02/16/2025 Blood pressure systolic 114 mm Hg 02/16/2025 Weight 201.6 lbs 02/16/2025 BMI 32.54 kg/m2 02/16/2025 Encounters Encounter Location Date Provider Diagnosis [facility] [address] [place] [address] 08/04/2024 Gladys Nolasco Generalized anxiety disorder F41.1 [facility] [address] [place] [address] 03/09/2025 Isamar Jesus [facility] [address] [place] [address] 03/18/2025 Isamarangie Jesus [facility] [address] [place] [address] 03/09/2025 Isamarangie Jesus Cracked tooth K03.81 ; Partial loss of teeth, unspecified cause, class I K08.401 ; Encounter for dental examination and cleaning with abnormal findings Z01.21 ; Disturbances in tooth eruption K00.6 ; Necrosis of pulp K04.1 and Dental caries on pit and fissure surface penetrating into dentin K02.52 [place] [address] [place] [address] 01/01/2025 Gladys Slingwine Generalized anxiety disorder F41.1 ; Depression F32.9 and Episodic mood disorder F39 [place] [address] [place] [address] 03/18/2025 Gladys Slingwine Generalized anxiety disorder F41.1 ; Depression F32.9 ; Substance use disorder F19.90 and Episodic mood disorder F39 [place] [address] [place] [address] 08/27/2024 Gladys Slingwine Generalized anxiety disorder F41.1 ; Episodic mood disorder F39 ; Depression F32.9 and Substance use disorder F19.90 [place] [address] [place] [address] 02/16/2025 Gladys Slingwine Generalized anxiety disorder F41.1 and Episodic mood disorder F39 [facility] [address] [place] [address] 10/23/2024 Gladys Slingwine Episodic mood disorder F39 and Generalized anxiety disorder F41.1 [facility] [address] [place] [address] 04/04/2024 Gladys Slingwine Generalized anxiety disorder F41.1 and Episodic mood disorder F39 [facility] [address] [place] [address] 04/16/2024 Gladys Slingwine Generalized anxiety disorder F41.1 and Episodic mood disorder F39 [place] [address] [place] [address] 05/07/2024 Gladys Nolasco Episodic mood disorder F39 and Generalized anxiety disorder F41.1 Assessments Encounter Date Diagnosis (ICD Code) Assessment [...] patient crisis plan. Provided crisis hotline number. [facility] has good support system. Made aware to [...] patient crisis plan. Provided crisis hotline number. [facility] has good support system. Made aware to [...] patient crisis plan. Provided crisis hotline number. [facility] has good support system. Made aware to [...] patient crisis plan. Provided crisis hotline number. [facility] has good support system. Made aware to contact office if has an increase in suicidal thoughts. If outside of office hours, patient to go to the ER. Patient will call the office with any questions or concerns. clonidine and propranolol: Encouraged to call office or report to the if the patient experiences dizziness or lightheadedness 03/09/2025 Cracked tooth (ICD-10 - K03.81) 03/18/2025 Generalized anxiety disorder (ICD-10 - F41.1) [...] patient crisis plan. Provided crisis hotline number. [facility] has good support system. Made aware to contact office if has an increase in suicidal thoughts. If outside of office hours, patient to go to the ER. Patient will call the office with any questions or concerns. clonidine: Encouraged to call office or report to the if the patient experiences dizziness or lightheadedness 03/18/2025 Depression (ICD-10 - F32.9) 03/09/2025 Partial loss of teeth, unspecified cause, [...] patient crisis plan. Provided crisis hotline number. [facility] has good support system. Made aware to [...] patient crisis plan. Provided crisis hotline number. [facility] has good support system. Made aware to [...] cleaning with abnormal findings (ICD-10 - Z01.21) 03/18/2025 Substance use disorder (ICD-10 - F19.90) [...] patient crisis plan. Provided crisis hotline number. [facility] has good support system. Made aware to [...] All questions and concerns discussed . 03/09/2025 Disturbances in tooth eruption (ICD-10 - [...] patient crisis plan. Provided crisis hotline number. [facility] has good support system. Made aware to [...] CBC w/ Auto Diff 02/16/2025 CMP 02/16/2025 ECG 12 lead ECG 03/18/2025 Vit D 02/16/2025 Next Appt Details Provider Name:Gladys garrido, 05/20/2025 03:45:00 PM, [address] [place], [address], Provider Name:Sumi Randall, 06/22/2025 04:30:00 PM, XIN JIN, [place], [address], Provider Name:Sumi Randall, 06/29/2025 11:25:00 AM, XIN JIN, [place], [address], Provider Name:Sumi Randall, 07/13/2025 04:00:00 PM, XIN JIN, [place], [address], Insurance Providers Payer Name Payer Address Payer Phone Subscriber Number Group Number Insured Name Patient Relationship to Insured Coverage Start Date Coverage End Date [employer] [place] Medicaid [address] [place] [address] [id number] KINDERMA N, CEZAR Self - patient is the insured 5 [employer] [facility] [address] [place] [address] [id number] KINDERMA N, CEZAR Self - patient is the insured 5 [place]ICA[place] [address] [place] [address] [id number] KINDERMA N, CEZAR Self - patient is the insured 2 Dental [employer] [place] Medicaid [address] [place] [address] [id number] KINDERMA N, CEZAR Self - patient is the insured 2 BH [place]ICAID [place] [address] [place] [address] [id number] KINDERMA N, CEZAR Self - patient is the insured 2 [employer] [facility] [address] [place] [address] [id number] KINDERMA N, CEZAR Self - patient is the insured 2 Medical (General) History Medical History History ICD Code ANXIETY DEPRESSION Substance use disorder F19.90 Surgical History Surgery Date(Month/Year) Left wrist surgery Hospitalization History Reason Date(Month/Year) [facility] [place]- several times Head trauma 2007
--- OUTSIDE RECORDS SUMMARY | 2025-03-24 11:21 | XMS_ITS | Clinical Summary ---
Author Organization [facility] Healthcare Address [address] [place] [address] Care Team Providers Care Life Science Taxonomist Name Role Phone Unavailable Primary Care Provider [...]
--- NOTE | 2025-03-24 11:22 | XR_ITS ---
The [address] [address] Patient Name: CEZAR BUTLER MRN: [id number] date: 1985 Sex: F Assigned Patient Location: [facility] Current Patient Location: [facility] Accession/Order Number: [id number] Exam Date: 03/24/2025 11:27 Report Date: 03/24/2025 12:12 At the request of: NON-STAFF PHYSICIAN MD Procedure: XR chest 2V PA AND LATERAL CHEST: CLINICAL HISTORY: Positive QuantiFERON-TB Gold Plus Result COMPARISON: None There is minor blunting of the posterior left costophrenic angle which could be pleural thickening, atelectasis or a trace amount of pleural fluid. There is no additional parenchymal consolidation. No pneumothorax is seen. The cardiac, hilar and mediastinal silhouettes are within normal limits. There is no vascular congestion. The visualized bony thorax is intact. XR/XR chest 2V IMPRESSION: MINOR LEFT BASILAR PLEURAL-PARENCHYMAL CHANGE. NO RADIOGRAPHIC EVIDENCE OF PULMONARY TUBERCULOSIS. Impression dictated by: Alicia Wing M.D. 03/24/2025 12:12 PM Dictation Location: [place] [address] Electronically authenticated by: [id number] Y Date: 03/24/2025 12:12
--- OUTSIDE RECORDS SUMMARY | 2025-03-24 11:25 | XMS_ITS | CCD ---
Author Organization [facility] Care Team Providers Care Patient Support Associate Name Role Phone DENIS DIEGO Unavailable Unavailable [...] (1 source) Sulfonamides (Antibiotic) Drug Allergy 01-06-2014 [facility] (2 sources) Sulfonamides (Antibiotic) Drug allergy (disorder) 06-29-2013 [facility] Repository Medications Completed/Discontinued Medications Medication Drug Class(es) [...] Name Value Interpretation Reference Range Facility PAP [id number] Age Gdlnon 2023 IGP Aptima HPV ACOG Note Invalid Interpretation Code [facility] Comment on above: Result Comment: TEST S RESULT FLAG UNITS REF RANGE LAB Clinician Provided Cytology Information Source.............Cervix No. of containers..01 ThinPrep Vial Age Algo ACOG Suyapa... 30-65 01 FLAG LEGEND: L-Low Normal,H-High Normal,LL-Alert Low,HH-Alert High <-Panic Low,>-Panic High,A-Abnormal,AA-Critical Abnormal Performed at: 01 =G [facility] [address] [place] [id number] Teri Blanchard MD, Performed at: =G [facility] [address] [place], [place] [id number] MD Lo Williamson Performed By: #### 1 [id number], [id number] #### [facility] [address] [place] [address] PAP [id number] 02-08-2023 Cytology report Cyto stain Doc (Cvx/Vag) Note Invalid Interpretation Code [facility] Comment on above: Result Comment: TEST S RESULT FLAG UNITS REF RANGE LAB DIAGNOSIS: 02 NEGATIVE FOR INTRAEPITHELIAL LESION OR MALIGNANCY. Specimen adequacy: 02 Satisfactory for evaluation. Endocervical and/or squamous metaplastic cells (endocervical component) are present. Performed by: Stone Wolff, Agriculture Mechanic (ASCP) . 02 Note: Note 02 The Pap smear is a screening test designed to aid in the detection of premalignant and malignant conditions of the uterine cervix. It is not a diagnostic procedure and should not be used as the sole means of detecting cervical cancer. Both false-positive and false-negative reports do occur. Test Methodology: Note 02 The Higgle(R) Head Setter was unable to read this specimen. Therefore a manual review was performed. FLAG LEGEND: L-Low Normal,H-High Normal,LL-Alert Low,HH-Alert High <-Panic Low,>-Panic High,A-Abnormal,AA-Critical Abnormal Performed at: 02 WB [facility] [address] [place] [address] Teri Blanchard MD, Performed By: #### 1 [id number], [id number] #### [facility] [address] [place] [address] HPV 16+18+31+33+35+39+4 5+51+52+56+58+59+66 +68 DNA Probe+sig amp Ql (Cvx) Negative Invalid Interpretation Code Negative [facility] Comment on above: Result Comment: This nucleic acid amplification test detects fourteen high-risk HPV types (16,18,31,33,35,39,45,51,52,56,58,59,66,68) without differentiation. Performed By: #### 1 [id number], [id number] #### [facility] [address] [place] [address] PAP [id number] Age Gdlnon 2023 Collection Technique BRUSH-SPATULA Normal [facility] Comment on above: Performed By: #### 1 [id number], [id number] #### [facility] [address] [place] [address] Gynecological Body Site CERVIX Normal [facility] Comment on above: Performed By: #### 1 [id number], [id number] #### [facility] [address] [place] [address] Physician Orderon 02-06-2023 Physician Order [id number] Normal [facility] HEPATITIS PANEL, ACUTEon HBsAg Screen Negative Normal Negative [facility] Comment on above: Performed By: #### H EPACUT #### [facility] [address] [address] [address] Jayla Erazo HCV AB >11.0 Critically high 0.0-0.9 [facility] Comment on above: Result Comment: . Performed By: #### H EPACUT #### [facility] [address] [address] [address] Jayla Erazo HCV log10 Normal [facility] Comment on above: Performed By: #### H EPACUT #### [facility] [address] [address] [address] Jayla Erazo Hep A Ab, IgM Negative Normal Negative [facility] Comment on above: Performed By: #### H EPACUT #### [facility] [address] [address] [address] Jayla Erazo Hep B Core Ab, IgM Negative Normal Negative [facility] Comment on above: Performed By: #### H EPACUT #### [facility] [address] [address] [address] Jayla Erazo Hep C Quantitation Not detected Normal [facility] Comment on above: Performed By: #### H EPACUT #### [facility] [address] [address] [address] Jayla Erazo Interpretation Comment Normal [facility] Comment on above: Result Comment: Posi tive HCV antibody screen without the presence of HCV RNA is consistent with a resolved past infection or a false positive HCV antibody. Consider repeat testing after one month. Performed By: #### H EPACUT #### [facility] [address] [address] [address] Jayla Erazo Test Information: Comment Normal [facility] Comment on above: Result Comment: The quantitative range of this assay is 15 IU/mL to 100 million IU/mL. Performed By: #### H EPACUT #### [facility] [address] [place] [address] Dr. Jayla Eraoz HIV 1 AND 2 WITH REFLEXon HIV Screen 4th Generation wRfx Non-Reactive Normal Non Reactive [facility] Comment on above: Result Comment: HIV Negative HIV-1/HIV-2 antibodies and HIV-1 p24 antigen were NOT detected. There is no laboratory evidence of HIV infection. Performed By: #### H IV12 #### [facility] [address] [place] [address] Dr. Jayla Erazo RPR QUANTon 05-27-2022 Rapid Plasma Reagin, Quant Non-Reactive Normal NonRea<1:1 [facility] Comment on above: Result Comment: Plea se Note: This test does not meet current guidelines for screening and diagnosis of syphilis. This test is intended for following treatment response in patients being treated for syphilis infection. To screen for syphilis infection, a reflex cascade that includes both RPR and a treponema-specific assay should be utilized, such as Treponema pallidum (Syphilis) Screening [place] (516914) or Rapid Plasma Reagin (RPR) Test With Reflex to Quantitative RPR and Confirmatory Treponema pallidum Antibodies (980101). Performed By: #### R PRQ #### [facility] [address] [place] [address] Dr. Jayla Erazo CBC AUTO DIFFon 05-25-2022 BASO # 0.1 103/ul Normal 0.0-0.1 [facility] Comment on above: Performed By: #### C BC #### [facility] [address] [place] [address] Dr. Jayla Erazo Basophils/100 WBC (Bld) 0.9 % Normal 0.2-2.0 [facility] Comment on above: Performed By: #### C BC #### [facility] [address] [place] [address] Dr. Jayla Erazo EO # 0.3 103/ul Normal 0.0-0.7 [facility] Comment on above: Performed By: #### C BC #### [facility] [address] [place] [address] Dr. Jayla Erazo Eosinophils/100 WBC (Bld) 5.1 % Normal 0.9-7.0 [facility] Comment on above: Performed By: #### C BC #### [facility] [address] [place] [address] Dr. Jayla Erazo Erythrocyte distribution width (RBC) [Ratio] 12.4 % Normal 11.0-15.0 [facility] Comment on above: Performed By: #### C BC #### [facility] [address] [place] [address] Dr. Jayla Erazo Hematocrit (Bld) [Volume fraction] 38.8 % Normal 36.0-48.0 [facility] Comment on above: Performed By: #### C BC #### [facility] [address] [place] [address] Dr. Jayla Erazo Hemoglobin (Bld) [Mass/Vol] 13.0 g/dL Normal 12.0-16.0 [facility] Comment on above: Performed By: #### C BC #### [facility] [address] [place] [address] Dr. Jayla Erazo IG # 0.02 10e3/ul Normal 0.00-0.03 [facility] Comment on above: Performed By: #### C BC #### [facility] [address] [place] [address] Dr. Jayla Erazo IG % 0.3 % Normal 0.0-0.5 [facility] Comment on above: Performed By: #### C BC #### [facility] [address] [place] [address] Dr. Jayla Erazo LYMPH # 2.2 103/ul Normal 1.2-3.8 [facility] Comment on above: Performed By: #### C BC #### [facility] [address] [place] [address] Dr. Jayla Erazo Lymphocytes/100 WBC (Bld) 32.8 % Normal 20.5-60.0 [facility] Comment on above: Performed By: #### C BC #### [facility] [address] [place] [address] Dr. Jayla Erazo MANUAL DIFF REQ NO Normal [facility] Comment on above: Performed By: #### C BC #### [facility] [address] [place] [address] Dr. Jayla Erazo MCH (RBC) [Entitic mass] 29.2 pg Normal 26.7-34.0 [facility] Comment on above: Performed By: #### C BC #### [facility] [address] [address] [address] Jayla Erazo MCHC (RBC) [Mass/Vol] 33.5 g/dL Normal 29.9-35.2 [facility] Comment on above: Performed By: #### C BC #### [facility] [address] [address] [address] Jayla Erazo MCV (RBC) [Entitic vol] 87.2 fL Normal 81.0-99.0 [facility] Comment on above: Performed By: #### C BC #### [facility] [address] [address] [address] Jayla Erazo MONO # 0.4 103/ul Normal 0.3-0.8 [facility] Comment on above: Performed By: #### C BC #### [facility] [address] [place] [address] Dr. Jayla Erazo Monocytes/100 WBC (Bld) 6.2 % Normal 1.7-12.0 [facility] Comment on above: Performed By: #### C BC #### [facility] [address] [place] [address] Dr. Jayla Erazo NEUT # 3.6 103/ul Normal 1.4-6.5 [facility] Comment on above: Performed By: #### C BC #### [facility] [address] [address] [address] Jayla Erazo Neutrophils/100 WBC (Bld) 54.7 % Normal 43.0-75.0 [facility] Comment on above: Performed By: #### C BC #### [facility] [address] [address] [address] Jayla Erazo Platelet mean volume (Bld) [Entitic vol] 7.9 fL Critically low 9.5-13.5 [facility] Comment on above: Performed By: #### C BC #### [facility] [address] [address] [address] Jayla Erazo PLT 251 103/ul Normal 150-450 [facility] Comment on above: Performed By: #### C BC #### [facility] [address] [address] [address] Jayla Erazo RBC 4.45 106/ul Normal 4.20-5.40 [facility] Comment on above: Performed By: #### C BC #### [facility] [address] [address] [address] Jayla Erazo WBC 6.6 103/ul Normal 4.0-11.0 [facility] Comment on above: Performed By: #### C BC #### [facility] [address] [address] [address] Jayla Erazo PROF 14(COMP METB)on 022 Albumin [Mass/Vol] 4.5 g/dL Normal 3.4-5.0 [facility] Comment on above: Performed By: #### C MP, TSH #### [facility] [address] [place] [address] Dr. Jayla Erazo Albumin/Globulin [Mass ratio] 1.2 {ratio} Normal [facility] Comment on above: Performed By: #### C MP, TSH #### [facility] [address] [place] [address] Dr. Jayla Erazo ALP [Catalytic activity/Vol] 87 U/L Normal 46-116 [facility] Comment on above: Performed By: #### C MP, TSH #### [facility] [address] [address] [address] Jayla Erazo ALT [Catalytic activity/Vol] 21 U/L Normal 14-59 [facility] Comment on above: Performed By: #### C MP, TSH #### [facility] [address] [place] [address] Dr. Jayla Erazo Anion gap [Moles/Vol] 9.4 mmol/L Normal [facility] Comment on above: Performed By: #### C MP, TSH #### [facility] [address] [address] [address] Jayla Erazo AST [Catalytic activity/Vol] 14 U/L Critically low 15-37 [facility] Comment on above: Performed By: #### C MP, TSH #### [facility] [address] [address] [address] Jayla Erazo Bilirubin [Mass/Vol] 0.5 mg/dL Normal 0.2-1.0 [facility] Comment on above: Performed By: #### C MP, TSH #### [facility] [address] [place] [address] Dr. Jayla Erazo Calcium [Mass/Vol] 9.5 mg/dL Normal 8.5-10.1 [facility] Comment on above: Performed By: #### C MP, TSH #### [facility] [address] [place] [address] Dr. Jayla Erazo Chloride [Moles/Vol] 101 mmol/L Normal 98-107 [facility] Comment on above: Performed By: #### C MP, TSH #### [facility] [address] [place] [address] Dr. Jayla Erazo CO2 [Moles/Vol] 34.2 mmol/L Critically high 21.0-32.0 [facility] Comment on above: Performed By: #### C MP, TSH #### [facility] [address] [place] [address] Dr. Jayla Erazo Creatinine [Mass/Vol] 0.90 mg/dL Normal 0.55-1.02 [facility] Comment on above: Performed By: #### C MP, TSH #### [facility] [address] [place] [address] Dr. Jayla Erazo EGFR-AF CANADIAN >60 Normal >=60 [facility] Comment on above: Performed By: #### C MP, TSH #### [facility] [address] [place] [address] Dr. Jayla Erazo EGFR-NON AF CANADIAN >60 Normal >=60 [facility] Comment on above: Performed By: #### C MP, TSH #### [facility] [address] [place] [address] Dr. Jayla Erazo Globulin (S) [Mass/Vol] 3.8 g/dL Normal [facility] Comment on above: Performed By: #### C MP, TSH #### [facility] [address] [address] [address] Jalya Erazo Glucose [Mass/Vol] 80 mg/dL Normal 74-106 [facility] Comment on above: Performed By: #### C MP, TSH #### [facility] [address] [address] [address] Jayla Erazo Potassium [Moles/Vol] 4.6 mmol/L Normal 3.5-5.1 [facility] Comment on above: Performed By: #### C MP, TSH #### [facility] [address] [address] [address] Jayla Erazo Protein [Mass/Vol] 8.3 g/dL Critically high 6.4-8.2 [facility] Comment on above: Performed By: #### C MP, TSH #### [facility] [address] [place] [address] Dr. Jayla Erazo Sodium [Moles/Vol] 140 mmol/L Normal 136-145 [facility] Comment on above: Performed By: #### C MP, TSH #### [facility] [address] [place] [address] Dr. Jayla Erazo Urea nitrogen [Mass/Vol] 14.0 mg/dL Normal 7.0-18.0 [facility] Comment on above: Performed By: #### C MP, TSH #### [facility] [address] [place] [address] Dr. Jayla Erazo Urea nitrogen/Creatinine [Mass ratio] 15.6 mg/mg Normal [facility] Comment on above: Performed By: #### C MP, TSH #### [facility] [address] [place] [address] Dr. Jayla Erazo TSHon 05-25-2022 TSH 1.602 uIU/mL Normal 0.358-3.740 [facility] Comment on above: Performed By: #### C MP, TSH #### [facility] [address] [place] [address] Dr. Jayla Erazo VITAMIN D 25 OHon 05-25-2022 VIT D 25-OH 17.1 ng/mL Normal [facility] Comment on above: Performed By: #### V ITAD #### [facility] [address] [address] [address] Jayla Erazo VIT D RANGES SEE BELOW Normal [facility] Comment on above: Result Comment: <20 ng/mL Vit D deficient 20 - <30 ng/mL Vit D insufficient 30 - 100 ng/mL Vit D sufficient >100 ng/mL Potential Toxicity Performed By: #### V ITAD #### [facility] [address] [address] [address] Jayla [facility]raz[facility] SARS-CoV-2 (COVID-19) RNA SHIRAZ+probe Ql (Unsp spec) Not detected Normal NOT DETECTED [facility] Comment on above: Result Comment: This test is not yet approved or cleared by the [place] FDA. When there are no FDA-approved or cleared tests available, and other criteria are met, FDA can make tests available under an emergency access mechanism called an Emergency Use Authorization (EUA). The EUA for this test is supported by the Manufacturing Engineer Supervisor of Health and Human Service's (HHS's) declaration [...] SARS-CoV-2. Performed By: #### C VDTBH #### [facility] [address] [address] [address] Jayla Erazo Consulton 05-17-2018 HIM IP Note OR Sewer Pipe Cleaner Normal [facility] Discharge Summaryon 05-17-20 18 HIM IP Note OR Sewer Pipe Cleaner Normal [facility] ED Noteon 05-17-2018 HIM IP Note OR Sewer Pipe Cleaner Normal [facility] HIM IP Note OR Sewer Pipe Cleaner Normal [facility] HIM IP Note OR Sewer Pipe Cleaner Normal [facility] HIM IP Note OR Sewer Pipe Cleaner Normal [facility] HIM IP Note OR Sewer Pipe Cleaner Normal [facility] ED Provider Noteon 8 HIM IP Note OR Sewer Pipe Cleaner Normal [facility] History and Physicalon 05-17 HIM IP Note OR Sewer Pipe Cleaner Normal [facility] Plan of Careon 05-17-2018 HIM IP Note OR Sewer Pipe Cleaner Normal [facility] HIM IP Note OR Sewer Pipe Cleaner Normal [facility] Procedureon 05-17-2018 HIM IP Note OR Sewer Pipe Cleaner Normal [facility] Progress Noteon 05-17-2018 HIM IP Note OR Sewer Pipe Cleaner Normal [facility] Encounters Encounter Date Encounter Type Care Provider Facility Start: 02-05-2023 End: 02-06-2023 ambulatory WILLIAM BENDER Facility:[facility] Start: 07-03-2022 End: 07-04-[address] RADHA WILSON Facility:[facility] Start: 05-25-2022 End: 05-26-[address] DOCTOR YI Facility:[facility] Start: 04-20-[address] RADHA WILSON Faci lity:[facility] Start: 11-08-2021 End: 11-08-2021 ambulatory POLINA MALONE Facility:[facility] Start: 05-17-2018 End: 05-17-2018 Patient encounter DENIS DIEGO [facility] Start: 02-10-2014 End: 02-10-2014 Telephone encounter Tre [...] 03-30-2021 Influenza vaccination INFLUENZA (Sea son Ended) [facility] Start: 2014 HPV TESTING HPV TESTING [facility] Start: 2005 PAP TESTING PAP TESTING [facility] Start: 2003 Urine microalbumin profile DTAP,TDAP ,TD (1 - Tdap) [facility] Start: 2002 HEPATITIS C SCREENING HEPATITIS C SC REENING [facility] Start: 2002 HIV SCREENING HIV SCREENING [facility] Start: 1996 Adult depression scr eening assessment DEPRESSION SCREENING [facility] Payers Date Payer Category Payer Medicare [id number] 2013 Medicaid MEDICAID [facility] MEDICAID [id number] 2013-Present Medicaid [id number] 2013 Medicare MEDICARE MEDICAR E B [id number] 2013-Present [place] Medicare [id number] 1984 Unknown [id number] 1984 Unknown [id number] 1984 Unknown [id number] 1984 Unknown [id number] 1984 Unknown [id number] 1984 Unknown [id number] 1984 Unknown [id number] 1959 Medicaid [id number] Social History Date Type Detail Facility Start: 01-06-2014 Tobacco smoking stat us NHIS Current every day smoker [facility] Start: 01-06-2014 Tobacco use and exposure Never used [facility] Start: 01-06-2014 Alcohol intake Current drinke r of alcohol (finding) [facility] Start: 10-01-2013 [facility] Start: 1984 Sex Assigned At Not on file [facility] Note 02-10-2014 Telephone Encounter - [...] no further questions documented in this encounter [facility] Summary Purpose Family History No Family History Records FoundNo Family History Records FoundNo Family History Records Found Advance Directives No Advanced Directives Records FoundNo Advanced Directives Records FoundNo Advanced Directives Records Found Additional Source Comments INFORMATION SOURCE (unrecogn ized section and content) DATE CREATED AUTHOR 06/17/2018 [facility] DATE CREATED AUTHOR AUTHOR'S ORGANIZ ATION 07/08/2022 [facility] DATE CREATED AUTHOR AUTHOR'S ORGANIZ ATION 02/09/2023 [facility] Source Comments (unrecognize d section and content) In the event this informatio n is protected by the Federal Confidentiality of Alcohol and Drug Abuse Patient Records regulations: The Federal rules restrict any use of the information to criminally investigate or prosecute any alcohol or drug abuse patient.[facility] FOR RECORDS PERTAINING TO PATIENTS WHO ARE [...] BE BASED ON THE PRIMARY CLINICAL RECORDS. [facility]. provides no warranty or guarantee of the accuracy or completeness of information in this document.
== END 2025-03-24 11:19 | disposition home or self-care (01) ==
LOC: RAD 11:19
DX: R76.11 Nonspecific reaction to tuberculin skin test without active tuberculosis (principal)
CPT/HCPCS: 71046